=== PATIENT | female | born 1985 | race African-American/Black ===

== ENCOUNTER 2016-07-26 20:35 | Emergency (ER) | payer BC, MEDICAID, OTHER ==
[2016-07-27 02:01] VITALS: BP 134/83
[2016-07-27] MEDS ORDERED: HYDROCODONE/ACETAMINOPHEN 5-325 MG 6 TAB/DSPK PO PRN (02:07)
[2016-07-27] MEDS ORDERED: IBUPROFEN 600 MG TABLET PO ONE (02:07)
--- NOTE | 2016-07-27 02:07 | ER Document Report ---
ED Neck/Back Problem - General Chief Complaint: Back Pain Stated Complaint: FALL/BACK PAIN Time seen by provider: 02:06 Mode of Arrival: Ambulatory Information source: Patient TRAVEL OUTSIDE OF THE [place] IN LAST 30 DAYS: No - HPI Patient complains to provider of: Pain, Injury, Lower back Onset: Yesterday Where: Home Onset: Sudden Timing: Constant Quality of pain: Achy Severity: Moderate Pain Level: 3 Context: Fall/near-fall Recent injury: Yes Associated symptoms: Lower back pain Exacerbated by: Movement of trunk Similar symptoms previously: No Recently seen / treated by doctor: No Notes: 31-year-old female presents to emergency room complaining of buttock and right hip pain stemming from a slip and fall that she sustained yesterday, states she did not immediately have pain and therefore did not seek medical treatment, but throughout the day today she her achy pain to these areas has increased, although she has been able to ambulate and did in fact drive herself to the emergency room to be seen, no head injury or loss of consciousness, no urinary symptoms, no nausea, vomiting or diarrhea - Related Data Allergies/Adverse Reactions: No Known Allergies Allergy (Unverified 07/26/16 20:56) Past Medical History - General Information source: Patient - Social History Smoking Status: Unknown if Ever Smoked Family History: Reviewed & Not Pertinent Patient has suicidal ideation: No Patient has homicidal ideation: No Renal/ Medical History: Denies: Hx Peritoneal Dialysis Review of Systems - Review of Systems Constitutional: No symptoms reported EENT: No symptoms reported Cardiovascular: No symptoms reported Respiratory: No symptoms reported Gastrointestinal: No symptoms reported Genitourinary: No symptoms reported Female Genitourinary: No symptoms reported Musculoskeletal: See HPI Skin: No symptoms reported Hematologic/Lymphatic: No symptoms reported Neurological/Psychological: No symptoms reported -: Yes All other systems reviewed and negative Physical Exam - Vital signs Vitals: Temp Pulse Resp BP Pulse Ox 98.3 F 83 18 111/82 98 07/26/16 20:52 07/26/16 20:52 07/26/16 20:52 07/26/16 20:52 07/26/16 20:52 Interpretation: Normal - Notes Notes: - General General appearance: Appears well, Alert In distress: None - HEENT Head: Normocephalic, Atraumatic Eyes: Normal Conjunctiva: Normal Extraocular movements intact: Yes Eyelashes: Normal Pupils: PERRL - Respiratory Respiratory status: No respiratory distress - Cardiovascular Rhythm: Regular - Abdominal Inspection: Normal - Back Back: Tender to palpate over lower lumbar and sacral region - Extremities General upper extremity: Normal inspection General lower extremity: Tender to palpate over right hip laterally - Neurological Neuro grossly intact: Yes Orientation: AAOx4 Belcher Coma Scale Eye Opening: Spontaneous Belcher Coma Scale Verbal: Oriented Belcher Coma Scale Motor: Obeys Commands Belcher Coma Scale Total: 15 - Psychological Associated symptoms: Normal affect, Normal mood - Skin Skin Temperature: Warm Skin Moisture: Dry Skin Color: Normal Course - Re-evaluation Re-evalutation: 07/27/16 03:37 Imaging findings discussed with patient at bedside which are unremarkable, findings are consistent with a contusion, she was provided with pain medication and information for follow-up, advised to return if symptoms worsen, patient acknowledges understanding and agreement with this plan - Vital Signs Vital signs: Temp Pulse Resp BP Pulse Ox 97.6 F 83 16 134/83 H 99 07/27/16 01:55 07/27/16 01:55 07/27/16 01:55 07/27/16 01:55 07/27/16 01:55 - Diagnostic Test Radiology reviewed: Image reviewed, Reports reviewed Discharge - Discharge Clinical Impression: Injury of coccyx Qualifiers: Encounter type: initial encounter Qualified Code(s): S39.92XA - Unspecified injury of lower back, initial encounter Contusion of right hip Qualifiers: Encounter type: initial encounter Qualified Code(s): S70.01XA - Contusion of right hip, initial encounter Condition: Stable Disposition: HOME, SELF-CARE Instructions: Ice Packs ([facility]), Low Back Pain ([facility]), Oral Narcotic Medication ( [facility]), Coccyx Injury ([facility]), Contusion ([facility]) Additional Instructions: Follow up with your primary care provider in one to 2 days. Return to the emergency room immediately if symptoms worsen or any additional concerns. Prescriptions: Hydrocodone/Acetaminophen [Hydrocodon-Acetaminophen 5-325] 1 each PO Q6 #20 tablet
== END 2016-07-27 02:23 | disposition home or self-care (01) ==
LOC: ER 20:35
DX: S70.01XA Contusion of right hip, initial encounter (principal); S39.92XA Unspecified injury of lower back, initial encounter; M25.551 Pain in right hip; W10.9XXA Fall (on) (from) unspecified stairs and steps, initial encounter; Y92.009 Unspecified place in unspecified non-institutional (private) residence as the place of occurrence of the external cause
CPT/HCPCS: 72110; 99283

== ENCOUNTER 2016-09-25 09:13 | Emergency (ER) | payer SELFPAY ==
[2016-09-25] MEDS ORDERED: KETOROLAC TROMETHAMINE 60 MG/2 ML SDV IM ONE (09:30)
--- NOTE | 2016-09-25 09:33 | ER Document Report ---
HPI - HPI Patient complains to provider of: SORE THROAT Pain Level: 5 Context: PT is a 31 yo female w/ hx/o MS c/o sore throat, headache, body aches x 1 day. pt also c/o c/o lack of coordination which is sometimes a symptom of a MS flare. Associated Symptoms: Body/muscle aches, Fever, Headache, Sore throat, Weakness. denies: Nausea, Vomiting, Shortness of breath Exacerbated by: Denies Relieved by: Denies Similar symptoms previously: Yes Recently seen / treated by doctor: No - new to area, no established with primary care - DERM Skin Color: Normal Past Medical History - General Information source: Patient - Social History Smoking Status: Former Smoker Frequency of alcohol use: None Drug Abuse: None Lives with: Family Family History: Reviewed & Not Pertinent Patient has suicidal ideation: No Patient has homicidal ideation: No - Medical History Medical History: Other - MS Renal/ Medical History: Denies: Hx Peritoneal Dialysis Vertical Provider Document - CONSTITUTIONAL Agree With Documented VS: Yes - hypertensive Exam Limitations: No Limitations General Appearance: WD/WN, Obese - INFECTION CONTROL TRAVEL OUTSIDE OF THE [place] IN LAST 30 DAYS: No - HEENT HEENT: Atraumatic, PERRLA, Pharyngeal Tenderness, Pharyngeal Erythema - NECK Neck: Normal Inspection. negative: Lymphadenopathy-Left, Lymphadenopathy-Right - RESPIRATORY Respiratory: Breath Sounds Normal, No Respiratory Distress O2 Sat by Pulse Oximetry: 98 - CARDIOVASCULAR Cardiovascular: Regular Rate, Regular Rhythm - GI/ABDOMEN Gastrointestinal: Abdomen Soft, Abdomen Non-Tender - MUSCULOSKELETAL/EXTREMETIES Musculoskeletal/Extremeties: MAEW, FROM - NEURO Level of Consciousness: Awake, Alert - DERM Integumentary: Warm, Dry Course - Vital Signs Vital signs: Temp Pulse Resp BP Pulse Ox 99.3 F 96 20 142/91 H 98 09/25/16 09:18 09/25/16 09:18 09/25/16 09:18 09/25/16 09:18 09/25/16 09:18 Discharge - Discharge Clinical Impression: Strep throat Condition: Stable Disposition: HOME, SELF-CARE Instructions: Strep Throat ([facility]), Penicillin V K ([facility]) Additional Instructions: You have strep throat take meds as prescribed, finish prescription lozenges, salt water gargles new tooth brush in 2 days your blood pressure is elevated today please keep blood pressure diary and establish with primary care if BP remains high Prescriptions: Penicillin V Potassium [Penicillin Vk 500 mg Tablet] 500 mg PO BID #20 tablet Forms: Elevated Blood Pressure
[2016-09-25] MEDS ORDERED: HYDROCODONE/ACETAMINOPHEN 5-325 MG TABLET PO ONE (10:30)
[2016-09-25 10:50] VITALS: BP 111/65
== END 2016-09-25 10:52 | disposition home or self-care (01) ==
LOC: ER 09:13
DX: J02.0 Streptococcal pharyngitis (principal); R51 Headache; R50.9 Fever, unspecified; R53.1 Weakness; G35 Multiple sclerosis; I10 Essential (primary) hypertension; Z87.891 Personal history of nicotine dependence
CPT/HCPCS: 99283; 96372; 87880; J1885

== ENCOUNTER 2016-10-11 02:35 | Emergency (ER) | payer OTHER ==
--- NOTE | 2016-10-11 03:35 | RADIOLOGY REPORT (SQ) ---
EXAM DESCRIPTION: HAND RIGHT 3 VIEWS COMPLETED DATE/TIME: 10/11/2016 3:09 am REASON FOR STUDY: injury COMPARISON: None. EXAM PARAMETERS: NUMBER OF VIEWS: Three views. TECHNIQUE: AP, lateral and oblique radiographic images acquired of the right hand. LIMITATIONS: None. FINDINGS: MINERALIZATION: Normal. BONES: No acute fracture or dislocation. No worrisome bone lesions. JOINTS: No effusions. SOFT TISSUES: No soft tissue swelling. No foreign body. OTHER: No other significant finding. IMPRESSION: NEGATIVE STUDY OF THE RIGHT HAND. NO RADIOGRAPHIC EVIDENCE OF ACUTE INJURY. TECHNICAL DOCUMENTATION: JOB ID: [id number] [employer]- All Rights Reserved
--- NOTE | 2016-10-11 04:14 | ER Document Report ---
ED General - General Chief Complaint: Hand Pain Stated Complaint: HAND PAIN Time Seen by Provider: 10/11/16 03:47 Notes: Patient is a pleasant 31-year-old female who presents with complaint of pain in the right thumb. Patient is a heavy truck driver. She said when she went to push on the air break her thumb hyperextended backwards and she felt a crack. She had bruising and swelling over the hyperthenar eminence of her symptoms. No other injuries or complaints. No pain in the wrist. TRAVEL OUTSIDE OF THE [place] IN LAST 30 DAYS: No - Related Data Allergies/Adverse Reactions: IV dye Allergy (Uncoded 10/11/16 03:42) Home Medications: Current Home Medications Gabapentin [Neurontin 300 mg Capsule] 1 cap PO Q8 10/11/16 [History] Interferon Beta-1B [Betaseron Inj 0.3 mg Kit] 1 kit SQ ASDIR PRN 10/11/16 [ History] Past Medical History - Social History Smoking Status: Never Smoker Cigarette use (# per day): No Chew tobacco use (# tins/day): No Frequency of alcohol use: None Drug Abuse: None Family History: Reviewed & Not Pertinent Patient has suicidal ideation: No Patient has homicidal ideation: No Renal/ Medical History: Denies: Hx Peritoneal Dialysis Past Surgical History: Reports: Hx Section - x1 - Immunizations Hx Diphtheria, Pertussis, Tetanus Vaccination: - unknown Review of Systems - Review of Systems Notes: My Normal Review Basic REVIEW OF SYSTEMS: CONSTITUTIONAL : Denies fever, chills, or sweats. Denies recent illness. MUSCULOSKELETAL: Hand and thumb pain. SKIN: Denies rash or skin lesions. NEUROLOGICAL: Denies sensory or motor loss. ALL OTHER SYSTEMS REVIEWED AND NEGATIVE. Physical Exam - Vital signs Vitals: Temp Pulse Resp BP Pulse Ox 97.3 F 71 18 143/91 H 98 10/11/16 02:43 10/11/16 02:43 10/11/16 02:43 10/11/16 02:43 10/11/16 02:43 - Notes Notes: General Appearance: Well nourished, alert, cooperative, no acute distress, no obvious discomfort. Vitals: reviewed, See vital signs table. Extremities: strength 5/5 in all extremities, good pulses in all extremities, patient does have swelling of the right hyperthenar eminence. There is some bruising from the form base of thumb as well. Patient does have pain to palpation over this area. Remainder of the hand is nontender. No pain to palpation of the wrist., no edema. Skin: warm, dry, appropriate color, no rash Neuro: speech clear, oriented x 3, normal affect, responds appropriately to questions. Course - Re-evaluation Re-evalutation: 10/11/16 04:45 Patient injury and physical exam findings are consistent with a gamekeeper's thumb type injury to the ligament structure at the base of the right thumb. Will place her thumb spica splint. I will have her follow-up with orthopedics. I encouraged her return to ER if she has increasing pain or swelling or feels unwell. I did explain to her that she can use an Sergio wrap on the splint if she has any numbness or tingling to the hand or feels that is too tight. Patient agrees with plan and will be discharged home. Dictation of this chart was performed using voice recognition software; therefore, there may be some unintended grammatical errors. - Vital Signs Vital signs: Temp Pulse Resp BP Pulse Ox 97.7 F 72 18 125/76 98 10/11/16 04:34 10/11/16 04:34 10/11/16 04:34 10/11/16 04:34 10/11/16 04:34 Procedures - Immobilization Right Hand Pre-Proc Neuro Vasc Exam: Normal Immobilizer type: Thumb spica Performed by: PCT Post-Proc Neuro Vasc Exam: Normal Discharge - Discharge Clinical Impression: Strain of thumb, right Condition: Good Disposition: HOME, SELF-CARE Additional Instructions: You have what appears to be a injury to the ligament in your thumb called a Game Keeper's thumb.Please return to the ER if you have worsening pain or numbness in your fingers that is not improved with loosening the sergio wrap on the splint. Please follow up with the orthopedist, Dr. Goldstein, to have your hand reevaluated. Please wear the splint to protect your thumb so the ligament involved can heal appropriately. Referrals: CAMACHO GOLDSTEIN, [ACTIVE STAFF] - Follow up in 3-5 days
[2016-10-11 04:39] VITALS: BP 125/76
== END 2016-10-11 04:43 | disposition home or self-care (01) ==
LOC: ER 02:35
PROC: 2W3CX1Z Immobilization of Right Lower Arm using Splint (ICD-10-PCS; principal; 2016-10-11)
DX: S63.641A Sprain of metacarpophalangeal joint of right thumb, initial encounter (principal); X58.XXXA Exposure to other specified factors, initial encounter; Y99.0 Civilian activity done for income or pay
CPT/HCPCS: 99283

== ENCOUNTER 2017-01-23 21:26 | Emergency (ER) | payer OTHER ==
[2017-01-24] MEDS ORDERED: ONDANSETRON HCL INJ/PF 4 MG/2 ML SDV IV ONE (01:07)
[2017-01-24] MEDS ORDERED: NORMAL SALINE 1000 ML 1,000 ML IV ONE (01:07)
[2017-01-24 02:00] LABS: ABSOLUTE EOSINOPHILS # (AUTO) 0.2 10^3/uL (0.0-0.6); ABSOLUTE LYMPHOCYTES (AUTO) 1.7 10^3/uL (0.5-4.7); ABSOLUTE MONOCYTES (AUTO) 0.7 10^3/uL (0.1-1.4); BASOPHILS % (AUTO) 0.4 % (0-2); HEMATOCRIT 35.2 % (36.0-47.0); HEMOGLOBIN 11.5 g/dL (12.0-15.5); HGB HCT DIFFERENCE -0.7; LYMPHOCYTES % (AUTO) 36.7 % (13-45); MEAN CORPUSCULAR HEMOGLOBIN 25.3 pg (27.0-33.4); MEAN CORPUSCULAR HGB CONC 32.6 g/dL (32.0-36.0); MEAN CORPUSCULAR VOLUME 78 fl (80-97); MONOCYTES % (AUTO) 15.2 % (3-13); RED BLOOD COUNT 4.54 10^6/uL (3.72-5.28); RED CELL DISTRIBUTION WIDTH 15.1 % (11.5-14.0); SEGMENTED NEUTROPHILS % (AUTO) 43.7 % (42-78); WHITE BLOOD COUNT 4.6 10^3/uL (4.0-10.5)
[2017-01-24 02:06] LABS: ALANINE AMINOTRANSFERASE 39 U/L (9-52); ALBUMIN 4.1 g/dL (3.5-5.0); ALKALINE PHOSPHATASE 71 U/L (38-126); ANION GAP 13 (5-19); ASPARTATE AMINO TRANSFERASE 29 U/L (14-36); BILIRUBIN,DIRECT 0.2 mg/dL (0.0-0.4); BILIRUBIN,TOTAL 0.3 mg/dL (0.2-1.3); BLOOD UREA NITROGEN 17 mg/dL (7-20); CALCIUM 9.7 mg/dL (8.4-10.2); CARBON DIOXIDE 26 mmol/L (22-30); CHLORIDE 108 mmol/L (98-107); CREATININE RESULT 0.87 mg/dL (0.52-1.25); GLUCOSE 91 mg/dL (75-110); LIPASE 47.3 U/L (23-300); TOTAL PROTEIN 7.7 g/dL (6.3-8.2)
--- NOTE | 2017-01-24 02:08 | ER Document Report ---
ED General - General Chief Complaint: Diarrhea Stated Complaint: HEADACHE,DIZZINESS Time Seen by Provider: 01/24/17 01:06 Notes: Patient is a 31-year-old female without past medical history who presents with 4 days of present diarrhea and 1 day of intermittent abdominal cramping. Does describe cramping as an intermittent, mild, aching pain. It has been unchanged since onset. She has been trying loperamide and Pepto-Bismol without improvement of her symptoms. Nothing worsens her symptoms. She denies any associated vomiting and does note that she has been able to tolerate oral intake without difficulty. No known sick contacts. She denies a recent history of similar symptoms. She has not seen her primary care doctor regarding today's concerns. She denies any fever or constitutional symptoms. TRAVEL OUTSIDE OF THE [place] IN LAST 30 DAYS: No - Related Data Allergies/Adverse Reactions: IV dye Allergy (Uncoded 10/11/16 03:42) Past Medical History - General Information source: Patient - Social History Smoking Status: Never Smoker Frequency of alcohol use: None Drug Abuse: None Lives with: Family Family History: Reviewed & Not Pertinent Renal/ Medical History: Denies: Hx Peritoneal Dialysis Past Surgical History: Reports: Hx Section - x1 - Immunizations Hx Diphtheria, Pertussis, Tetanus Vaccination: - unknown Review of Systems - Review of Systems Notes: Constitutional: Negative for fever. HENT: Negative for sore throat. Eyes: Negative for visual changes. Cardiovascular: Negative for chest pain. Respiratory: Negative for shortness of breath. Gastrointestinal: Positive for abdominal cramping and diarrhea Genitourinary: Negative for dysuria. Musculoskeletal: Negative for back pain. Skin: Negative for rash. Neurological: Negative for headaches, weakness or numbness. 10 point ROS negative except as marked above and in HPI. Physical Exam - Vital signs Vitals: Temp Pulse Resp BP Pulse Ox 98.5 F 82 18 141/95 H 98 01/23/17 22:50 01/23/17 22:50 01/23/17 22:50 01/23/17 22:50 01/23/17 22:50 Interpretation: Normal Notes: PHYSICAL EXAMINATION: GENERAL: Well-appearing, well-nourished and in no acute distress. HEAD: Atraumatic, normocephalic. EYES: Pupils equal round and reactive to light, extraocular movements intact, sclera anicteric, conjunctiva are normal. ENT: nares patent, oropharynx clear without exudates. Moist mucous membranes. NECK: Normal range of motion, supple without lymphadenopathy LUNGS: Breath sounds clear to auscultation bilaterally and equal. No wheezes rales or rhonchi. HEART: Regular rate and rhythm without murmurs ABDOMEN: Soft, nontender, normoactive bowel sounds. No guarding, no rebound. No masses appreciated. EXTREMITIES: Normal range of motion, no pitting or edema. No cyanosis. NEUROLOGICAL: No focal neurological deficits. Moves all extremities spontaneously and on command. PSYCH: Normal mood, normal affect. SKIN: Warm, Dry, normal turgor, no rashes or lesions noted. Course - Re-evaluation Re-evalutation: 01/24/17 02:07 Presentation of an overall well-appearing patient in no acute distress with complaints of persistent abdominal cramping and diarrhea. This is consistent with likely viral etiology although a bacterial colitis cannot be definitively excluded. Patient has no abdominal tenderness on exam and specifically no tenderness in the RLQ, LLQ, RUQ. Overall well hydrated on exam. Able to tolerate oral intake here in the emergency department. Low clinical suspicion for any acute life-threatening etiology based on exam and history including acute cholecystitis, SBO, appendicitis, nephrolithiasis, or pylonephritis. CMP without evidence of acute hepatitis or significant dehydration. Will send with a [id number] prescription of ciprofloxacin if she does not have resolution of her diarrhea with the next 48 hours. At this time will discharge with return precautions and follow-up recommendations. Verbal discharge instructions given a the bedside and opportunity for questions given. Medication warnings reviewed. Patient is in agreement with this plan and has verbalized understanding of return precautions and the need for primary care follow-up in the next 24-72 hours. - Vital Signs Vital signs: Temp Pulse Resp BP Pulse Ox 98.5 F 82 18 141/95 H 98 01/23/17 22:50 01/23/17 22:50 01/23/17 22:50 01/23/17 22:50 01/23/17 22:50 - Laboratory Result Diagrams: 01/24/17 01:40 01/24/17 01:40 Laboratory results interpreted by me: 01/24/17 01/24/17 01:40 01:40 Hgb 11.5 L Hct 35.2 L MCV 78 L MCH 25.3 L RDW 15.1 H Monocytes % 15.2 H Sodium 147.0 H Chloride 108 H Discharge - Discharge Clinical Impression: Dehydration, Lightheadedness Diarrhea Qualifiers: Diarrhea type: presumed infectious Qualified Code(s): A09 - Infectious gastroenteritis and colitis, unspecified Condition: Good Disposition: HOME, SELF-CARE Additional Instructions: Your symptoms are likely due to a viral illness and should resolve in the next several days. However, given the persistence of your diarrhea you have been given a prescription for ciprofloxacin that you can begin taking if your diarrhea does not resolve within the next 48 hours. You can take over-the- counter loperamide also known as Imodium as needed for diarrhea per box instructions. Continue to stay hydrated with plenty of solution such as Gatorade or Pedialyte. You are being prescribed Zofran to take as needed for nausea and vomiting. Please return if you develop severe abdominal pain, pass out, become unable to tolerate any oral fluids for 12 more hours, or any other symptoms that are concerning to you. Prescriptions: Ciprofloxacin HCl [Cipro 500 mg Tablet] 500 mg PO BID #6 tablet
[2017-01-24 03:11] VITALS: BP 128/86
== END 2017-01-24 03:00 | disposition home or self-care (01) ==
LOC: ER 21:26
DX: E86.0 Dehydration (principal); R42 Dizziness and giddiness; A09 Infectious gastroenteritis and colitis, unspecified; R10.9 Unspecified abdominal pain; Z91.041 Radiographic dye allergy status
CPT/HCPCS: 36415; 80053; 83690; 84703; 85025; 99284

== ENCOUNTER 2017-05-08 20:56 | Emergency (ER) | payer OTHER ==
[2017-05-08] MEDS ORDERED: ONDANSETRON 4 MG TAB.RAPDIS PO ONE (23:59)
--- NOTE | 2017-05-09 00:01 | ER Document Report ---
ED Medical Screen (RME) - General Chief Complaint: Vomiting Stated Complaint: HEADACHE,ABDOMINAL PAIN Time Seen by Provider: 05/08/17 23:59 Mode of Arrival: Ambulatory Information source: Patient Notes: 32-year-old female presents to ED for complaint of nausea vomiting headache stomachache since this morning. She states her last menstrual period was Monday. She has a past medical history of MS. She denies any drinking drugs or smoking. Lungs are clear abdomen is soft she does have bowel sounds. She states she has had vomiting 10 the day had 5 stools today is that everyone in her family has had some kind of sickness but none of them had the same symptoms that she does. I have greeted and performed a rapid initial assessment of this patient. A comprehensive ED assessment and evaluation of the patient, analysis of test results and completion of medical decision making process will be conducted by an additional ED providers. TRAVEL OUTSIDE OF THE [place] IN LAST 30 DAYS: No - Related Data Allergies/Adverse Reactions: IV dye Allergy (Uncoded 10/11/16 03:42) Past Medical History Renal/ Medical History: Denies: Hx Peritoneal Dialysis Past Surgical History: Reports: Hx Section - x1 - Immunizations Hx Diphtheria, Pertussis, Tetanus Vaccination: - unknown
[2017-05-09 00:37] LABS: ABSOLUTE EOSINOPHILS # (AUTO) 0.1 10^3/uL (0.0-0.6); ABSOLUTE LYMPHOCYTES (AUTO) 0.7 10^3/uL (0.5-4.7); ABSOLUTE MONOCYTES (AUTO) 0.4 10^3/uL (0.1-1.4); ABSOLUTE NEUT (AUTO) 3.6 10^3/uL (1.7-8.2); BASOPHILS % (AUTO) 0.4 % (0-2); EOSINOPHILS % (AUTO) 1.4 % (0-6); HEMATOCRIT 37.3 % (36.0-47.0); HEMOGLOBIN 11.9 g/dL (12.0-15.5); LYMPHOCYTES % (AUTO) 15.2 % (13-45); MEAN CORPUSCULAR HEMOGLOBIN 24.5 pg (27.0-33.4); MEAN CORPUSCULAR VOLUME 77 fl (80-97); MONOCYTES % (AUTO) 9.1 % (3-13); PLATELET COUNT 329 10^3/uL (150-450); RED BLOOD COUNT 4.86 10^6/uL (3.72-5.28); RED CELL DISTRIBUTION WIDTH 18.4 % (11.5-14.0); SEGMENTED NEUTROPHILS % (AUTO) 73.9 % (42-78); TOTAL CELLS COUNTED % (AUTO) 100 %; WHITE BLOOD COUNT 4.8 10^3/uL (4.0-10.5)
[2017-05-09 00:43] LABS: APPEARANCE,URINE SLIGHTLY-CLOUDY; BILIRUBIN,URINE NEGATIVE (NEGATIVE); COLOR,URINE YELLOW; GLUCOSE, URINE NEGATIVE (NEGATIVE); KETONES,URINE NEGATIVE (NEGATIVE); LEUKOCYTE ESTERASE,URINE NEGATIVE (NEGATIVE); NITRITE,URINE NEGATIVE (NEGATIVE); PROTEIN,URINE NEGATIVE (NEGATIVE); URINE SPECIFIC GRAVITY 1.036; UROBILINOGEN,URINE NEGATIVE mg/dL (<2.0)
[2017-05-09 01:01] LABS: ALANINE AMINOTRANSFERASE 30 U/L (9-52); ALBUMIN 4.3 g/dL (3.5-5.0); ALKALINE PHOSPHATASE 60 U/L (38-126); ANION GAP 10 (5-19); ASPARTATE AMINO TRANSFERASE 18 U/L (14-36); BILIRUBIN,DIRECT 0.1 mg/dL (0.0-0.4); BILIRUBIN,TOTAL 0.3 mg/dL (0.2-1.3); BLOOD UREA NITROGEN 12 mg/dL (7-20); CALCIUM 9.6 mg/dL (8.4-10.2); CARBON DIOXIDE 25 mmol/L (22-30); CHLORIDE 106 mmol/L (98-107); GLUCOSE 106 mg/dL (75-110); POTASSIUM 4.3 mmol/L (3.6-5.0); SODIUM 141.4 mmol/L (137-145); TOTAL PROTEIN 7.4 g/dL (6.3-8.2)
[2017-05-09] MEDS ORDERED: DIPHENHYDRAMINE HCL 50 MG CAPSULE PO ONE (02:30)
[2017-05-09] MEDS ORDERED: PROMETHAZINE HCL 25 MG TABLET PO ONE (02:30)
--- NOTE | 2017-05-09 02:35 | ER Document Report ---
ED General - General Chief Complaint: Vomiting Stated Complaint: HEADACHE,ABDOMINAL PAIN Time Seen by Provider: 05/08/17 23:59 Mode of Arrival: Ambulatory Information source: Patient Notes: 32-year-old female presents with complaints of nausea vomiting diarrhea of 1 day duration. Patient notes she vomited 10 times had 6 episodes diarrhea no blood. Patient denies any significant abdominal pain admits mild headache. Patient notes multiple family members have had similar symptoms. TRAVEL OUTSIDE OF THE [place] IN LAST 30 DAYS: No - HPI Onset: This morning Onset/Duration: Sudden Quality of pain: Cramping Severity: Mild Pain Level: 1 Associated symptoms: Diarrhea, Nausea, Vomiting Exacerbated by: Denies Relieved by: Denies Similar symptoms previously: No Recently seen / treated by doctor: No - Related Data Allergies/Adverse Reactions: IV dye Allergy (Uncoded 10/11/16 03:42) Past Medical History - General Information source: Patient - Social History Smoking Status: Never Smoker Cigarette use (# per day): No Chew tobacco use (# tins/day): No Smoking Education Provided: No Family History: Reviewed & Not Pertinent Renal/ Medical History: Denies: Hx Peritoneal Dialysis Past Surgical History: Reports: Hx Section - x1 - Immunizations Hx Diphtheria, Pertussis, Tetanus Vaccination: - unknown Review of Systems - Review of Systems Notes: REVIEW OF SYSTEMS: CONSTITUTIONAL : Denies fever, chills, or sweats. Denies recent illness. EENT: Denies eye, ear, throat, or mouth pain or symptoms. Denies nasal or sinus congestion or discharge. Denies throat, tongue, or mouth swelling or difficulty swallowing. CARDIOVASCULAR: Denies chest pain. Denies palpitations or racing or irregular heart beat. Denies ankle edema. RESPIRATORY: Denies cough, cold, or chest congestion. Denies shortness of breath, difficulty breathing, or wheezing. GASTROINTESTINAL: admit sto nausea vomiting diarrhea GENITOURINARY: Denies difficulty urinating, painful urination, burning, frequency, blood in urine, or discharge. FEMALE GENITOURINARY: Denies vaginal bleeding, heavy or abnormal periods, irregular periods. Denies vaginal discharge or odor. MUSCULOSKELETAL: Denies back or neck pain or stiffness. Denies joint pain or swelling. SKIN: Denies rash, lesions or sores. HEMATOLOGIC : Denies easy bruising or bleeding. LYMPHATIC: Denies swollen, enlarged glands. NEUROLOGICAL: Denies confusion or altered mental status. Denies passing out or loss of consciousness. Denies dizziness or lightheadedness. Denies headache. Denies weakness or paralysis or loss of use of either side. Denies problems with gait or speech. Denies sensory loss, numbness, or tingling. Denies seizures. PSYCHIATRIC: Denies anxiety or stress. Denies depression, suicidal ideation, or homicidal ideation. ALL OTHER SYSTEMS REVIEWED AND NEGATIVE. PHYSICAL EXAMINATION: GENERAL: Well-appearing, well-nourished and in no acute distress. HEAD: Atraumatic, normocephalic. EYES: Pupils equal round and reactive to light, extraocular movements intact, conjunctiva are normal. ENT: Nares patent, oropharynx clear without exudates. Moist mucous membranes. NECK: Normal range of motion, supple without lymphadenopathy LUNGS: Breath sounds clear to auscultation bilaterally and equal. No wheezes rales or rhonchi. HEART: Regular rate and rhythm without murmurs ABDOMEN: Soft, nontender, nondistended abdomen. No guarding, no rebound. No masses appreciated. Female : deferred Musculoskeletal: Normal range of motion, no pitting or edema. No cyanosis. NEUROLOGICAL: Cranial nerves grossly intact. Normal speech, normal gait. Normal sensory, motor exams PSYCH: Normal mood, normal affect. SKIN: Warm, Dry, normal turgor, no rashes or lesions noted. Dictation was performed using [employer] voice recognition software Physical Exam - Vital signs Vitals: Temp Pulse Resp BP Pulse Ox 99.3 F 79 24 H 138/86 H 98 05/08/17 22:30 05/08/17 22:30 05/08/17 22:30 05/08/17 22:30 05/08/17 22:30 Course - Re-evaluation Re-evalutation: 05/09/17 02:34 patient is extremely well appearing , resting comfortably, pt is in no distress. pt will be given phenergan and follow up for home labs noted no significant abnormality After performing a Medical Screening Examination, I estimate there is LOW risk for ACUTE APPENDICITIS, BOWEL OBSTRUCTION, ACUTE CHOLECYSTITIS, PERFORATED DIVERTICULITIS, INCARCERATED HERNIA, PANCREATITIS, PELVIC INFLAMMATORY DISEASE, PERFORATED ULCER, ECTOPIC , or TUBO-OVARIAN ABSCESS, thus I consider the discharge disposition reasonable. Also, there is no evidence or peritonitis , sepsis, or toxicity. I have reevaluated this patient multiple times and no significant life threatening changes are noted. The patient and I have discussed the diagnosis and risks, and we agree with discharging home with close follow-up with the understanding that symptoms and presentations can change. We also discussed returning to the Emergency Department immediately if new or worsening symptoms occur. We have discussed the symptoms which are most concerning (e.g., bloody stool, fever, changing or worsening pain, vomiting) that necessitate immediate return. - Vital Signs Vital signs: Temp Pulse Resp BP Pulse Ox 98.9 F 74 20 124/74 99 05/09/17 01:06 05/09/17 01:06 05/09/17 01:06 05/09/17 01:06 05/09/17 01:06 - Laboratory Result Diagrams: 05/09/17 00:10 05/09/17 00:10 Laboratory results interpreted by me: 05/09/17 05/09/17 00:10 00:15 Hgb 11.9 L MCV 77 L MCH 24.5 L RDW 18.4 H Urine Ascorbic Acid 20 H Discharge - Discharge Clinical Impression: Nausea vomiting and diarrhea Condition: Stable Disposition: HOME, SELF-CARE Instructions: Vomiting ([facility]), Diarrhea, Nonspecific ([facility]) Additional Instructions: Follow up with your physician tomorrow for further care or return to the ED IMMEDIATELY if symptoms worsen or new concerns occur. If you cannot afford to follow up with your primary care physician a list of low cost clinics have been provided at the end of your discharge papers as well. Prescriptions: Promethazine HCl [Phenergan 25 mg Tablet] 1 - 2 tab PO Q6H PRN #15 tablet PRN Reason:
[2017-05-09 03:12] VITALS: BP 140/84
== END 2017-05-09 03:05 | disposition home or self-care (01) ==
LOC: ER 20:56
DX: R11.2 Nausea with vomiting, unspecified (principal); R19.7 Diarrhea, unspecified
CPT/HCPCS: 36415; 80053; 81001; 84702; 85025; 99284

== ENCOUNTER 2018-04-27 20:54 | Emergency (ER) | payer OTHER ==
--- NOTE | 2018-04-27 22:54 | EKG REPORT ---
SEVERITY:- NORMAL ECG - SINUS RHYTHM : Confirmed by: Yudy Barnes MD 27-Apr-2018 22:53:27
[2018-04-28] MEDS ORDERED: BENZONATATE 100 MG CAPSULE PO ONE (01:46)
[2018-04-28] MEDS ORDERED: ALBUTEROL SULFATE HFA (90 MCG/PUFF) 200 PUFF/8.5 GM MDI IH ONE (01:46)
[2018-04-28] MEDS ORDERED: DEXAMETHASONE 4 MG TABLET PO ONE (01:46)
--- NOTE | 2018-04-28 01:48 | ER Document Report ---
ED General - General Chief Complaint: Cough Stated Complaint: CHEST PAIN,DIFFICULTY BREATHING,EYES BURNING Time Seen by Provider: 04/28/18 01:12 Notes: Patient is a 33-year-old female with a past medical history of morbid obesity who presents with 2 days of sinus pressure, eye burning, cough and chest discomfort with coughing. Patient describes her symptoms as starting gradually and gotten progressively worse since onset. Has not trying to improve her symptoms. Nothing worsens her symptoms. Does describe the chest discomfort as being diffuse across her ribs, chest and upper back and present only with coughing. Describes it as a soreness and achiness. She denies distinct shortness of breath. No fever. No pleuritic pain. No history of DVT or pulmonary embolus. Multiple sick contacts. Has not seen her general physician regarding today's concerns. TRAVEL OUTSIDE OF THE [place] IN LAST 30 DAYS: No - Related Data Allergies/Adverse Reactions: IV dye Allergy (Uncoded 10/11/16 03:42) Past Medical History - General Information source: Patient - Social History Smoking Status: Never Smoker Frequency of alcohol use: None Drug Abuse: None Lives with: Family Family History: Reviewed & Not Pertinent Patient has suicidal ideation: No Patient has homicidal ideation: No Renal/ Medical History: Denies: Hx Peritoneal Dialysis Past Surgical History: Reports: Hx Section - x1 - Immunizations Hx Diphtheria, Pertussis, Tetanus Vaccination: - unknown Review of Systems - Review of Systems Notes: Constitutional: Negative for fever. HENT: Negative for sore throat. Eyes: Positive for bilateral eye burning Cardiovascular: Negative for chest pain. Respiratory: Positive for cough Gastrointestinal: Negative for abdominal pain, vomiting or diarrhea. Genitourinary: Negative for dysuria. Musculoskeletal: Positive for diffuse musculoskeletal chest and upper back pain Skin: Negative for rash. Neurological: Negative for headaches, weakness or numbness. 10 point ROS negative except as marked above and in HPI. Physical Exam - Vital signs Vitals: Temp Pulse Resp BP Pulse Ox 98.3 F 75 24 H 135/83 H 100 04/27/18 21:10 04/27/18 21:10 04/27/18 21:10 04/27/18 21:10 04/27/18 21:10 Interpretation: Normal Notes: PHYSICAL EXAMINATION: GENERAL: Well-appearing, well-nourished and in no acute distress. HEAD: Atraumatic, normocephalic. EYES: Pupils equal round and reactive to light, extraocular movements intact, sclera anicteric, conjunctiva are normal. ENT: nares patent, oropharynx clear without exudates. Moist mucous membranes. NECK: Normal range of motion, supple without lymphadenopathy LUNGS: Breath sounds clear to auscultation bilaterally and equal. No wheezes rales or rhonchi. HEART: Regular rate and rhythm without murmurs ABDOMEN: Soft, morbidly obese abdomen nontender, normoactive bowel sounds. No guarding, no rebound. No masses appreciated. EXTREMITIES: Normal range of motion, no pitting or edema. No cyanosis. NEUROLOGICAL: No focal neurological deficits. Moves all extremities spontaneously and on command. PSYCH: Normal mood, normal affect. SKIN: Warm, Dry, normal turgor, no rashes or lesions noted. Course - Re-evaluation Re-evalutation: 04/28/18 01:47 Patient presents with a clinical history and exam most consistent with an acute viral bronchitis. Patient is overall well in appearance without tachypnea, hypoxemia, tachycardia, or difficulty with ambulation. Breath sounds are clear bilaterally. No fever. Patient does have additional signs of upper respiratory infection including nasal congestion, bilateral eye irritation, sore throat, and sinus pressure. No indication for labs or imaging. Will treat with bronchodilators, single dose of dexamethasone, and Tessalon Perles. At this heather e will discharge with return precautions and follow-up recommendations. Verbal discharge instructions given a the bedside and opportunity for questions given. Medication warnings reviewed. Patient is in agreement with this plan and has verbalized understanding of return precautions and the need for primary care follow-up in the next 24-72 hours. - Vital Signs Vital signs: Temp Pulse Resp BP Pulse Ox 98.1 F 81 20 120/80 100 04/28/18 01:50 04/28/18 01:50 04/28/18 01:50 04/28/18 01:50 04/28/18 01:50 Discharge - Discharge Clinical Impression: Bronchitis, Chest wall pain Condition: Good Disposition: HOME, SELF-CARE Additional Instructions: You were seen for symptoms most consistent with bronchitis. This can take up to 12 weeks to fully resolve. This is generally due to a viral infection. Please follow-up with your primary doctor in the next 2-3 days. Return if you develop worsening cough, vomiting, fever >100.4, pass out, begin coughing blood, or have any other symptoms that are concerning to you. Please use the medications prescribed today as directed.
[2018-04-28 02:06] VITALS: BP 120/80
== END 2018-04-28 02:00 | disposition home or self-care (01) ==
LOC: ER 20:54
DX: J40 Bronchitis, not specified as acute or chronic (principal); R07.89 Other chest pain; E66.01 Morbid (severe) obesity due to excess calories
CPT/HCPCS: 93005; 99283; 93010; J3490

== ENCOUNTER 2018-05-05 18:35 | Emergency (ER) | payer OTHER ==
[2018-05-05 18:45] VITALS: BP 136/81
--- NOTE | 2018-05-05 19:32 | ER Document Report ---
ED General - General Chief Complaint: Ear Pain Stated Complaint: HEADACHE Time Seen by Provider: 05/05/18 19:26 TRAVEL OUTSIDE OF THE [place] IN LAST 30 DAYS: No - HPI Patient complains to provider of: Bilateral ear pain headache Notes: Patient coming in for evaluation of bilateral ear pain headache and some slight dizziness. Patient states ongoing for quite a few number days. Patient denies any recent travel in airplane denies any scuba diving patient denies any fever chills nausea vomiting denies any trauma. Resting healthy upon my evaluation. - Related Data Allergies/Adverse Reactions: IV dye Allergy (Uncoded 10/11/16 03:42) Past Medical History - Social History Smoking Status: Unknown if Ever Smoked Chew tobacco use (# tins/day): No Frequency of alcohol use: None Drug Abuse: None Family History: Reviewed & Not Pertinent Patient has suicidal ideation: No Patient has homicidal ideation: No Renal/ Medical History: Denies: Hx Peritoneal Dialysis Past Surgical History: Reports: Hx Section - x1 - Immunizations Hx Diphtheria, Pertussis, Tetanus Vaccination: - unknown Review of Systems - Review of Systems Constitutional: No symptoms reported EENT: Ear pain - Headache Cardiovascular: No symptoms reported Respiratory: No symptoms reported Gastrointestinal: No symptoms reported Genitourinary: No symptoms reported Female Genitourinary: No symptoms reported Musculoskeletal: No symptoms reported Skin: No symptoms reported Hematologic/Lymphatic: No symptoms reported Neurological/Psychological: No symptoms reported -: Yes All other systems reviewed and negative Physical Exam - Vital signs Vitals: Temp Pulse Resp BP Pulse Ox 99.1 F 83 18 136/81 H 99 05/05/18 18:44 05/05/18 18:44 05/05/18 18:44 05/05/18 18:44 05/05/18 18:44 Interpretation: Normal - General General appearance: Appears well, Alert - HEENT Head: Normocephalic, Atraumatic Eyes: Normal Cornea: Normal Extraocular movements intact: Yes Eyelashes: Normal Pupils: PERRL Ears: Normal External canal: Cerumen impaction - Bilateral Tympanic membrane: Normal Sinus: Normal Nasal: Normal Mouth/Lips: Normal Mucous membranes: Normal Pharynx: Normal Neck: Normal - Respiratory Respiratory status: No respiratory distress Chest status: Nontender Breath sounds: Normal Chest palpation: Normal - Cardiovascular Rhythm: Regular Heart sounds: Normal auscultation Murmur: No - Abdominal Inspection: Normal Distension: No distension Bowel sounds: Normal Tenderness: Nontender Organomegaly: No organomegaly - Back Back: Normal, Nontender - Extremities General upper extremity: Normal inspection, Nontender, Normal color, Normal ROM, Normal temperature General lower extremity: Normal inspection, Nontender, Normal color, Normal ROM, Normal temperature, Normal weight bearing. No: Glenis's sign - Neurological Neuro grossly intact: Yes Cognition: Normal Orientation: AAOx4 [place] Coma Scale Eye Opening: Spontaneous [place] Coma Scale Verbal: Oriented [place] Coma Scale Motor: Obeys Commands [place] Coma Scale Total: 15 Speech: Normal Motor strength normal: LUE, RUE, LLE, RLE Sensory: Normal - Psychological Associated symptoms: Normal affect, Normal mood - Skin Skin Temperature: Warm Skin Moisture: Dry Skin Color: Normal Course - Re-evaluation Re-evalutation: 05/05/18 20:49 Patient coming with bilateral cerumen impaction possibly causing some of her symptoms we will treat patient with Debrox recommend Tylenol Motrin for pain Fioricet for significant pain patient was discharged home the patient presents with headache without signs of SPRING FORGER bleed, stroke, infection, or other serious etiology. The patient is neurologically intact. Given the extremely low risk of these diagnoses further testing and evaluation for these possibilities does not appear to be indicated at this time. The patient has been instructed to return if the symptoms worsen or change in any way.. - Vital Signs Vital signs: Temp Pulse Resp BP Pulse Ox 99.1 F 83 18 136/81 H 99 05/05/18 18:44 05/05/18 18:44 05/05/18 18:44 05/05/18 18:44 05/05/18 18:44 Discharge - Discharge Clinical Impression: Bilateral impacted cerumen, Dizziness Headache Qualifiers: Headache type: unspecified Headache chronicity pattern: unspecified pattern Intractability: not intractable Qualified Code(s): R51 - Headache Condition: Good Instructions: Cerumen Impaction ([facility]), Headache ([facility]), Oral Narcotic Medication ([facility]) Additional Instructions: Your physical examination today shows bilateral cerumen impactions are bilateral impactions or earwax in the ears please use the Debrox drops as prescribed. He may take Tylenol and Motrin together as prescribed for your headache may also take the Fioricet please be aware that Fioricet may make you sleepy return to the ER symptoms worsen. Prescriptions: Ibuprofen [Motrin 600 mg Tablet] 600 mg PO Q8HP PRN #21 tablet PRN Reason: Butalb/Acetaminophen/Caffeine [Fioricet 50-300-40 mg Capsule] 1 cap PO Q4 PRN #30 cap PRN Reason: Carbamide Peroxide [Debrox 6.5 % Otic Drops 15 ml] 5 drop OS BID #1 bottle Forms: Return to Work
== END 2018-05-05 19:35 | disposition home or self-care (01) ==
LOC: ER 18:35
DX: H61.23 Impacted cerumen, bilateral (principal); H92.03 Otalgia, bilateral; R51 Headache; R42 Dizziness and giddiness; Z91.041 Radiographic dye allergy status
CPT/HCPCS: 99282

== ENCOUNTER 2018-08-29 18:35 | Emergency (ER) | payer OTHER ==
--- NOTE | 2018-08-29 19:56 | ER Document Report ---
ED Medical Screen (RME) - General Chief Complaint: Abdominal Cramping Stated Complaint: BODY PAIN Time Seen by Provider: 08/29/18 19:54 Mode of Arrival: Ambulatory Information source: Patient Notes: 33-year-old female presents to ED for complaint of abdominal cramping muscle cramping nauseated and seeing spots with numbness in her arm since about 2:00. 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 She states she has had these symptoms since about 2:00. She states she has been drinking fluids Gatorade all day. Patient is alert oriented respirations regular and unlabored speaking in full sentences walks with a even steady gait. She did drive herself to the emergency room. I have greeted and performed a rapid initial assessment of this patient. A comprehensive ED assessment and evaluation of the patient, analysis of test results and completion of medical decision making process will be conducted by an additional ED providers. Dictation of this chart was performed using voice recognition software; therefore, there may be some unintended grammatical errors. TRAVEL OUTSIDE OF THE [place] IN LAST 30 DAYS: No - Related Data Allergies/Adverse Reactions: IV dye Allergy (Uncoded 08/29/18 18:39) Past Medical History Renal/ Medical History: Denies: Hx Peritoneal Dialysis Past Surgical History: Reports: Hx Section - x1 - Immunizations Hx Diphtheria, Pertussis, Tetanus Vaccination: - unknown Physical Exam - Vital signs Vitals: Temp Pulse Resp BP Pulse Ox 98.2 F 78 16 142/85 H 98 08/29/18 19:27 08/29/18 19:27 08/29/18 19:27 08/29/18 19:27 08/29/18 19:27 Course - Vital Signs Vital signs: Temp Pulse Resp BP Pulse Ox 98.2 F 78 16 142/85 H 98 08/29/18 19:27 08/29/18 19:27 08/29/18 19:27 08/29/18 19:27 08/29/18 19:27
[2018-08-29 20:34] LABS: ABSOLUTE EOSINOPHILS # (AUTO) 0.2 10^3/uL (0.0-0.6); ABSOLUTE MONOCYTES (AUTO) 0.7 10^3/uL (0.1-1.4); ABSOLUTE NEUT (AUTO) 3.3 10^3/uL (1.7-8.2); BASOPHILS % (AUTO) 0.7 % (0-2); EOSINOPHILS % (AUTO) 2.5 % (0-6); HEMOGLOBIN 11.1 g/dL (12.0-15.5); MEAN CORPUSCULAR HEMOGLOBIN 24.2 pg (27.0-33.4); MEAN CORPUSCULAR HGB CONC 31.7 g/dL (32.0-36.0); MEAN CORPUSCULAR VOLUME 76 fl (80-97); MONOCYTES % (AUTO) 11.4 % (3-13); PLATELET COUNT 357 10^3/uL (150-450); RED BLOOD COUNT 4.59 10^6/uL (3.72-5.28); RED CELL DISTRIBUTION WIDTH 16.9 % (11.5-14.0); SEGMENTED NEUTROPHILS % (AUTO) 53.4 % (42-78); TOTAL CELLS COUNTED % (AUTO) 100 %; WHITE BLOOD COUNT 6.3 10^3/uL (4.0-10.5)
[2018-08-29 20:35] LABS: APPEARANCE,URINE SLIGHTLY-CLOUDY; BILIRUBIN,URINE NEGATIVE (NEGATIVE); COLOR,URINE YELLOW; GLUCOSE, URINE NEGATIVE (NEGATIVE); KETONES,URINE NEGATIVE (NEGATIVE); LEUKOCYTE ESTERASE,URINE NEGATIVE (NEGATIVE); NITRITE,URINE NEGATIVE (NEGATIVE); PROTEIN,URINE NEGATIVE (NEGATIVE); URINE SPECIFIC GRAVITY 1.031
[2018-08-29 20:51] LABS: ALANINE AMINOTRANSFERASE 26 U/L (9-52); ALBUMIN 3.8 g/dL (3.5-5.0); ALKALINE PHOSPHATASE 63 U/L (38-126); ANION GAP 10 (5-19); ASPARTATE AMINO TRANSFERASE 19 U/L (14-36); BILIRUBIN,DIRECT 0.2 mg/dL (0.0-0.4); BILIRUBIN,TOTAL 0.2 mg/dL (0.2-1.3); BLOOD UREA NITROGEN 10 mg/dL (7-20); CALCIUM 9.2 mg/dL (8.4-10.2); CARBON DIOXIDE 28 mmol/L (22-30); CHLORIDE 105 mmol/L (98-107); CREATINE KINASE 89 U/L (30-135); GLUCOSE 79 mg/dL (75-110); POTASSIUM 3.8 mmol/L (3.6-5.0); SODIUM 142.7 mmol/L (137-145); TOTAL PROTEIN 7.2 g/dL (6.3-8.2)
--- NOTE | 2018-08-30 00:16 | ER Document Report ---
ED General - General Chief Complaint: Abdominal Cramping Stated Complaint: BODY PAIN Time Seen by Provider: 08/29/18 19:54 Mode of Arrival: Ambulatory TRAVEL OUTSIDE OF THE [place] IN LAST 30 DAYS: No - HPI Notes: Patient is a 33-year-old female that presents to the emergency department for chief complaint of cramping and nausea. 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 Her truck did not have air conditioning today. Around 2 PM she started to feel overheated. She states after that she got lightheaded but did not have a syncopal episode. She reported abdominal cramping as well as diffuse muscle cramping. Patient states she did have some perioral paresthesias as well. After drinking Gatorade and water she had slight improvement. Patient has been in the ED air conditioning while waiting and does feel better now. She denies chest pain, dyspnea, vomitin g, diarrhea, dysuria, urinary frequency and recent illness. Past Medical History: MS Past Surgical History: x1 Social History: Denies drugs alcohol and tobacco Family History: Reviewed and noncontributory for presenting illness Allergies: Reviewed, see documented allergy list. REVIEW OF SYSTEMS: CONSTITUTIONAL : No fever No chills diaphoresis No recent illness EENT: No vision changes No congestion No sore throat CARDIOVASCULAR: No chest pain No palpitations RESPIRATORY: No shortness of breath No cough No difficulty breathing GASTROINTESTINAL: abdominal pain nausea No vomiting No diarrhea GENITOURINARY: No dysuria No hematuria No difficulty urinating MUSCULOSKELETAL: No back pain leg pain arm pain SKIN: No rashes No lesions LYMPHATIC: No swollen, enlarged glands. NEUROLOGICAL: lightheadedness No headache No weakness No paresthesias PSYCHIATRIC: No anxiety No depression PHYSICAL EXAMINATION: Vital signs reviewed, nursing noted reviewed. GENERAL: Well-appearing, well-nourished and in no acute distress. HEAD: Atraumatic, normocephalic. EYES: Eyes appear normal, extraocular movements intact, sclera anicteric, conjunctiva are normal. ENT: nares patent, oropharynx clear without exudates. Moist mucous membranes. NECK: Normal range of motion, supple without lymphadenopathy LUNGS: Breath sounds clear to auscultation bilaterally and equal. No wheezes rales or rhonchi. HEART: Regular rate and rhythm without murmurs ABDOMEN: Soft, nontender, normoactive bowel sounds. No rebound, guarding, or rigidity. No masses appreciated. EXTREMITIES: Nontender, good range of motion, no pitting or edema. NEUROLOGICAL: No focal neurological deficits. Moves all extremities spontaneously Motor and sensory grossly intact on exam. PSYCH: Normal mood, normal affect. SKIN: Warm, Dry, normal turgor, no rashes or lesions noted on exposed skin - Related Data Allergies/Adverse Reactions: IV dye Allergy (Uncoded 08/29/18 18:39) Past Medical History - General Information source: Patient - Social History Smoking Status: Former Smoker Chew tobacco use (# tins/day): No Frequency of alcohol use: None Drug Abuse: None Family History: Reviewed & Not Pertinent Patient has suicidal ideation: No Patient has homicidal ideation: No Renal/ Medical History: Denies: Hx Peritoneal Dialysis Past Surgical History: Reports: Hx Section - x1 - Immunizations Hx Diphtheria, Pertussis, Tetanus Vaccination: - unknown Physical Exam - Vital signs Vitals: Temp Pulse Resp BP Pulse Ox 98.2 F 78 16 142/85 H 98 08/29/18 19:27 08/29/18 19:27 08/29/18 19:27 08/29/18 19:27 08/29/18 19:27 Course - Re-evaluation Re-evalutation: 08/30/18 00:15 Vitals reviewed. Nursing notes reviewed. Patient is well-appearing, not tachycardic and has moist mucous membranes. She does appear hydrated. Her temperature is normal. Lab work shows a mild anemia but is otherwise unremar kable. Patient symptoms are likely related to heat exposure and heat exhaustion. Currently she states all of the cramping and numbness has resolved. She now only is feeling fatigued. Patient states that she has tomorrow off from work and does have air conditioning at home. I feel she is stable at this time for discharge. She will continue to stay hydrated and in the air conditioning. She was counseled on return precautions and follow-up instructions. She is stable at discharge. Laboratory 08/29/18 08/29/18 08/29/18 20:00 20:00 20:00 WBC 6.3 RBC 4.59 Hgb 11.1 L Hct 35.0 L MCV 76 L MCH 24.2 L MCHC 31.7 L RDW 16.9 H Plt Count 357 Seg Neutrophils % 53.4 Lymphocytes % 32.0 Monocytes % 11.4 Eosinophils % 2.5 Basophils % 0.7 Absolute Neutrophils 3.3 Absolute Lymphocytes 2.0 Absolute Monocytes 0.7 Absolute Eosinophils 0.2 Absolute Basophils 0.0 Sodium 142.7 Potassium 3.8 Chloride 105 Carbon Dioxide 28 Anion Gap 10 BUN 10 Creatinine 0.95 Est GFR ( Amer) > 60 Est GFR (Non-Af Amer) > 60 Glucose 79 Calcium 9.2 Total Bilirubin 0.2 Direct Bilirubin 0.2 Neonat Total Bilirubin Not Reportable Neonat Direct Bilirubin Not Reportable Neonat Indirect Bili Not Reportable AST 19 ALT 26 Alkaline Phosphatase 63 Creatine Kinase 89 Total Protein 7.2 Albumin 3.8 Serum HCG, Qual NEGATIVE Urine Color Urine Appearance Urine pH Ur Specific [place] Urine Protein Urine Glucose (UA) Urine Ketones Urine Blood Urine Nitrite Urine Bilirubin Urine Urobilinogen Ur Leukocyte Esterase Urine WBC (Auto) Urine RBC (Auto) Squamous Epi Cells Auto Urine Mucus (Auto) Urine Ascorbic Acid 08/29/18 20:00 WBC RBC Hgb Hct MCV MCH MCHC RDW Plt Count Seg Neutrophils % Lymphocytes % Monocytes % Eosinophils % Basophils % Absolute Neutrophils Absolute Lymphocytes Absolute Monocytes Absolute Eosinophils Absolute Basophils Sodium Potassium Chloride Carbon Dioxide Anion Gap BUN Creatinine Est GFR ( Amer) Est GFR (Non-Af Amer) Glucose Calcium Total Bilirubin Direct Bilirubin Neonat Total Bilirubin Neonat Direct Bilirubin Neonat Indirect Bili AST ALT Alkaline Phosphatase Creatine Kinase Total Protein Albumin Serum HCG, Qual Urine Color YELLOW Urine Appearance SLIGHTLY-CLOUDY Urine pH 5.0 Ur Specific [place] 1.031 Urine Protein NEGATIVE Urine Glucose (UA) NEGATIVE Urine Ketones NEGATIVE Urine Blood NEGATIVE Urine Nitrite NEGATIVE Urine Bilirubin NEGATIVE Urine Urobilinogen 2.0 H Ur Leukocyte Esterase NEGATIVE Urine WBC (Auto) 2 Urine RBC (Auto) 1 Squamous Epi Cells Auto 11 Urine Mucus (Auto) MOD Urine Ascorbic Acid NEGATIVE - Vital Signs Vital signs: Temp Pulse Resp BP Pulse Ox 98.2 F 78 16 142/85 H 98 08/29/18 19:27 08/29/18 19:27 08/29/18 19:27 08/29/18 19:27 08/29/18 19:27 - Laboratory Result Diagrams: 08/29/18 20:00 08/29/18 20:00 Laboratory results interpreted by me: 08/29/18 08/29/18 20:00 20:00 Hgb 11.1 L Hct 35.0 L MCV 76 L MCH 24.2 L MCHC 31.7 L RDW 16.9 H Urine Urobilinogen 2.0 H Discharge - Discharge Clinical Impression: Heat exhaustion Qualifiers: Encounter type: initial encounter Qualified Code(s): T67.5XXA - Heat exhaustion, unspecified, initial encounter Condition: Stable Disposition: HOME, SELF-CARE Instructions: Heat Exhaustion ([facility]) Additional Instructions: Please return to the emergency department if you have any worsening, or concern of your symptoms. Please return to the emergency department if you develop chest pain, difficulty breathing, severe abdominal pain, or ongoing vomiting. Please follow-up with your primary care physician in 2-3 days and any other recommended physicians. If prescribed, take all medications as directed. If you have any questions or concerns do not hesitate to return the emergency department for evaluation. Forms: Parent Work Note Referrals: [facility] [Provider Group] - Follow up as needed
[2018-08-30 00:19] VITALS: BP 125/74
== END 2018-08-30 00:22 | disposition home or self-care (01) ==
LOC: ER 18:35
DX: T67.5XXA Heat exhaustion, unspecified, initial encounter (principal); X30.XXXA Exposure to excessive natural heat, initial encounter; Y92.812 Truck as the place of occurrence of the external cause; Y99.0 Civilian activity done for income or pay; R61 Generalized hyperhidrosis; R11.0 Nausea; R10.9 Unspecified abdominal pain; M79.603 Pain in arm, unspecified; M79.606 Pain in leg, unspecified; D64.9 Anemia, unspecified; R42 Dizziness and giddiness; Z91.041 Radiographic dye allergy status; Z87.891 Personal history of nicotine dependence
CPT/HCPCS: 36415; 80053; 81001; 82550; 84703; 85025; 99283

== ENCOUNTER 2018-10-29 17:47 | Emergency (ER) | payer OTHER ==
[2018-10-29 18:00] VITALS: BP 128/79
[2018-10-29] MEDS ORDERED: NEOMY SULF/POLYMYX B SULF/HC OTIC SUSP 10 ML AD ONE (18:55)
--- NOTE | 2018-10-29 19:04 | ER Document Report ---
HPI - HPI Patient complains to provider of: right ear pain Time Seen by Provider: 10/29/18 18:48 Pain Level: 3 Context: 33-year-old female presents emergency department with chief complaint of right ear pain and drainage from both of her ears. She states it started about 1 week ago. Says she has tried Colace and [id number] eardrops with no success. Denies fevers or chills, complains of muffled hearing, denies tenderness over the mastoid process bilateral, denies neck stiffness. No other complaints - EENT EENT: REPORTS: Ear Pain - bilateral - REPRODUCTIVE Reproductive: DENIES: : Past Medical History - Social History Smoking Status: Never Smoker Frequency of alcohol use: None Drug Abuse: None Family History: Reviewed & Not Pertinent Patient has suicidal ideation: No Patient has homicidal ideation: No Renal/ Medical History: Denies: Hx Peritoneal Dialysis Past Surgical History: Reports: Hx Section - x1 - Immunizations Hx Diphtheria, Pertussis, Tetanus Vaccination: - unknown Vertical Provider Document - CONSTITUTIONAL Notes: PHYSICAL EXAMINATION: Reviewed vital signs and charting by RN GENERAL: Alert, interacts well. No acute distress. HEAD: Normocephalic, atraumatic. EYES: Pupils equal and round. Extraocular movements intact. ENT: Oral mucosa moist, tongue midline. Unable to visualize left TM due to cerumen impaction. Unable to completely visualize right TM but ear canal is inflamed and erythematous with wax buildup, patient has tenderness when palpating the tragus on the right side, no mastoid tenderness bilateral. NECK: Full range of motion. Trachea midline. LUNGS: Clear to auscultation bilaterally, no wheezes, rales, or rhonchi. No respiratory distress. HEART: Regular rate and rhythm. No murmur ABDOMEN: soft, non-tender. No distention. Bowel sounds present EXTREMITIES: Moves all 4 extremities spontaneously. No edema, No cyanosis. PSYCH: Normal affect, normal mood. SKIN: Warm, dry, normal turgor. No rashes or lesions noted. - INFECTION CONTROL TRAVEL OUTSIDE OF THE [place] IN LAST 30 DAYS: No Course - Re-evaluation Re-evalutation: 10/29/18 19:05 Symptoms consistent with acute otitis externa of the right ear. No evidence of mastoiditis at this time. Plan is to place her on antibiotic eardrops and have her follow-up with her primary in the next 72 to 96 hours. Stable for discharge. - Vital Signs Vital signs: Temp Pulse Resp BP Pulse Ox 97.8 F 76 16 128/79 H 97 10/29/18 17:50 10/29/18 17:50 10/29/18 17:50 10/29/18 17:50 10/29/18 17:50 Discharge - Discharge Clinical Impression: Otitis externa Qualifiers: Otitis externa type: unspecified type Chronicity: acute Laterality: right Qualified Code(s): H60.501 - Unspecified acute noninfective otitis externa, right ear Condition: Good Disposition: HOME, SELF-CARE Instructions: Otitis Externa ([facility]), Use of Ear Drops ([facility]) Additional Instructions: You are seen in the emergency department for edition called otitis externa, also called swimmer's ear. This requires antibiotic drops. He has been given some here in the emergency department and you should put 4 drops in your right ear 4 times per day for 7 days. Also, your left ear did not show evidence of otitis externa but it did have a lot of wax buildup. You can try to do gentle irrigation to try to loosen up the wax. If you develop fever, tenderness on the bone behind her ear, worsening ear drainage after using the drops for 3 to 4 days, you have complete hearing loss, or you have any other concerning symptoms please return to the emergency department for reevaluation. Please follow[place] with [facility] [place] the next several days. Referrals: RYANN ELLIS MD [Primary Care Provider] - Follow up as needed
== END 2018-10-29 19:09 | disposition home or self-care (01) ==
LOC: ER 17:47
DX: H60.501 Unspecified acute noninfective otitis externa, right ear (principal); H92.13 Otorrhea, bilateral; H92.03 Otalgia, bilateral; H61.23 Impacted cerumen, bilateral
CPT/HCPCS: 99282; J3490

== ENCOUNTER 2018-12-01 06:30 | Emergency (ER) | payer OTHER ==
[2018-12-01 08:23] LABS: ABSOLUTE EOSINOPHILS # (AUTO) 0.1 10^3/uL (0.0-0.6); ABSOLUTE LYMPHOCYTES (AUTO) 1.6 10^3/uL (0.5-4.7); ABSOLUTE MONOCYTES (AUTO) 0.5 10^3/uL (0.1-1.4); ABSOLUTE NEUT (AUTO) 2.2 10^3/uL (1.7-8.2); BASOPHILS % (AUTO) 0.9 % (0-2); EOSINOPHILS % (AUTO) 2.4 % (0-6); HEMOGLOBIN 12.2 g/dL (12.0-15.5); LYMPHOCYTES % (AUTO) 35.6 % (13-45); MEAN CORPUSCULAR HEMOGLOBIN 25.1 pg (27.0-33.4); MEAN CORPUSCULAR HGB CONC 32.2 g/dL (32.0-36.0); MEAN CORPUSCULAR VOLUME 78 fl (80-97); MONOCYTES % (AUTO) 11.9 % (3-13); PLATELET COUNT 315 10^3/uL (150-450); RED BLOOD COUNT 4.86 10^6/uL (3.72-5.28); RED CELL DISTRIBUTION WIDTH 16.5 % (11.5-14.0); SEGMENTED NEUTROPHILS % (AUTO) 49.2 % (42-78); TOTAL CELLS COUNTED % (AUTO) 100 %; WHITE BLOOD COUNT 4.5 10^3/uL (4.0-10.5)
[2018-12-01 08:44] LABS: ALKALINE PHOSPHATASE 52 U/L (38-126); ANION GAP 6 (5-19); ASPARTATE AMINO TRANSFERASE 51 U/L (14-36); BILIRUBIN,DIRECT 0.3 mg/dL (0.0-0.4); BILIRUBIN,TOTAL 0.4 mg/dL (0.2-1.3); BLOOD UREA NITROGEN 15 mg/dL (7-20); CARBON DIOXIDE 28 mmol/L (22-30); CHLORIDE 106 mmol/L (98-107); CREATINE KINASE 82 U/L (30-135); GLUCOSE 89 mg/dL (75-110); POTASSIUM 4.5 mmol/L (3.6-5.0); TOTAL PROTEIN 7.5 g/dL (6.3-8.2)
--- NOTE | 2018-12-01 08:52 | ER Document Report ---
Entered by NAYLA JULIEN SCRIBE 12/01/18 0744 Acting as scribe for:WILLIE BAILEY MD ED Extremity Problem, Upper - General Chief Complaint: Arm Problem Stated Complaint: LEFT ARM PAIN Time Seen by Provider: 12/01/18 07:42 Mode of Arrival: Ambulatory Information source: Patient Notes: 33 year old female that presents to the emergency department today with complai nts of LUE pain. Patient states she was seen by her PCP yesterday for this left upper extremity pain and her PCP referred her to the emergency department to rule out a deep vein thrombosis in her left upper extremity. Patient states it hurts if she tries to make a fist. 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 Patient denies any smoking history or recent central line/port placement. TRAVEL OUTSIDE OF THE [place] 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 Family History: Reviewed & Not Pertinent Past Surgical History: Reports: Hx Section - x1 - Immunizations Hx Diphtheria, Pertussis, Tetanus Vaccination: - unknown Review of Systems - Review of Systems Constitutional: No symptoms reported EENT: No symptoms reported Cardiovascular: No symptoms reported Respiratory: No symptoms reported Gastrointestinal: No symptoms reported Genitourinary: No symptoms reported Female Genitourinary: No symptoms reported Musculoskeletal: See HPI, Other - LUE pain Skin: No symptoms reported Hematologic/Lymphatic: No symptoms reported Neurological/Psychological: No symptoms reported -: Yes All other systems reviewed and negative Physical Exam - Vital signs Vitals: Temp Pulse Resp BP Pulse Ox 97.8 F 51 L 20 133/80 H 100 12/01/18 06:55 12/01/18 06:55 12/01/18 06:55 12/01/18 06:55 12/01/18 06:55 - Notes Notes: Physical Exam: General: Alert, appears well. HEENT: Normocephalic. Atraumatic. PERRL. Extraocular movements intact. Oropharynx clear. Neck: Supple. Left posterior cervical musculature tenderness with palpation with tenderness into the trapezius muscle. Respiratory: No respiratory distress. Clear and equal breath sounds bilaterally. Cardiovascular: Regular rate and rhythm. Abdominal: Obese. Non-tender. No distension. Normal Bowel Sounds. Back: No gross abnormalities. Extremities: Moves all four extremities. Upper extremities: Left biceps and lateral upper arm are tender with palpation. Left forearm tenderness over the brachioradialis muscle. Complains of pain when she makes a fist on the left. Flexion of left elbow against resistance causes pa in. No medial arm tenderness with palpation, no axilla tenderness with palpation, no scapular musculature tenderness with palpation. Lower extremities: Normal inspection. No edema. Normal ROM. Neurological: Normal cognition. AAOx4. Normal speech. Psychological: Normal affect. Normal Mood. Skin: Warm. Dry. Normal color. Course - Vital Signs Vital signs: Temp Pulse Resp BP Pulse Ox 97.8 F 51 L 20 133/80 H 100 12/01/18 06:55 12/01/18 06:55 12/01/18 06:55 12/01/18 06:55 12/01/18 06:55 - Laboratory Result Diagrams: 12/01/18 08:10 12/01/18 08:10 Laboratory results interpreted by me: 12/01/18 12/01/18 12/01/18 08:10 08:10 08:10 MCV 78 L MCH 25.1 L RDW 16.5 H D-Dimer 1.45 H AST 51 H - Diagnostic Test Radiology reviewed: Image reviewed - Preliminary report is no DVT for the left upper extremity venous Doppler. Discharge - Discharge Clinical Impression: Muscle strain of left upper extremity Qualifiers: Encounter type: initial encounter Qualified Code(s): S46.912A - Strain of unspecified muscle, fascia and tendon at shoulder and upper arm level, left arm, initial encounter Condition: Stable Disposition: HOME, SELF-CARE Additional Instructions: Muscle Strain You have strained the muscles in your left upper extremity. This often occurs with strenuous exertion, or during an injury that suddenly stretches the muscle. The seriousness of a strain varies. Some strains heal within days, others cause problems for months. X-rays cannot show a muscle strain. X-rays are taken only if symptoms suggest that a fracture could be present. The usual treatment of a muscle strain is rest and ice packs. Sometimes, a sling, splint, or crutches may be necessary to rest the muscle. The muscle can be used again once pain subsides. Severe strains require a special exercise and stretching program to prevent permanent stiffness and disability. Your doctor will advise you if this will be necessary. Call the doctor immediately if pain or swelling becomes severe, or if numbness or discoloration develop. The venous Doppler study was negative for DVT or blood clots. The physical exam was most consistent with muscle strain to your left upper arm extending up into the neck. Use the sling to support the weight of your arm and allow your muscles to relax. Take the medications as prescribed for muscle relaxation and pain control. Take ibuprofen 800 mg every 8 hours for the next few days. Use moist heat to the painful muscles. Limit using the left upper arm for the next few days. Follow-up with your primary care provider if not improving. RETURN TO THE EMERGENCY ROOM IF ANY NEW OR WORSENING SYMPTOMS. Prescriptions: Cyclobenzaprine HCl [Flexeril 5 mg Tablet] 5 mg PO TID PRN #15 tablet PRN Reason: Hydrocodone/Acetaminophen [[place] 5-325 mg Tablet] 1 tab PO Q4 PRN #15 tablet PRN Reason: Forms: Return to Work Scribe Attestation: 12/01/18 08:38 I personally performed the services described in the documentation, reviewed and edited the documentation which was dictated to the scribe in my presence, and it accurately records my words and actions. I personally performed the services described in the documentation, reviewed and edited the documentation which was dictated to the scribe in my presence, and it accurately records my words and actions.
[2018-12-01 10:59] VITALS: BP 133/77
--- NOTE | 2018-12-02 13:27 | XCELERA REPORT ---
[address] [address] Upper Extremity Venous Evaluation Name: SOPHIA GUO Age: 33 yrs Gender: Female : 1985 Patient Status: Emergency Patient Location: ER Study Date: 12/01/2018 09:58 AM Procedure: Unilateral duplex scan of the left upper extremity veins was performed, including responses to compression and other maneuvers. Reason For Study: left upper swelling; elevated d-dimer Ordering Physician: WILLIE BAILEY Performed By: Taurus Lee Left Sided Venous Evaluation Normal vessel filling wall to wall, compression and augmentation as well as Colour flow down to the forearm veins. Interpretation Summary No duplex evidence of DVT or obstruction in the left upper extremity. : WILLIE BAILEY > Dionte Costello
== END 2018-12-01 10:59 | disposition home or self-care (01) ==
LOC: ER 06:30
DX: S46.912A Strain of unspecified muscle, fascia and tendon at shoulder and upper arm level, left arm, initial encounter (principal); M79.602 Pain in left arm; X50.0XXA Overexertion from strenuous movement or load, initial encounter
CPT/HCPCS: 36415; 80053; 82550; 84703; 85025; 85379; 93971; 99284

== ENCOUNTER 2018-12-25 10:19 | Emergency (ER) | payer OTHER ==
--- NOTE | 2018-12-25 11:12 | ER Document Report ---
ED Medical Screen (RME) - General Chief Complaint: Abdominal Pain Stated Complaint: STOMACH PAIN Time Seen by Provider: 12/25/18 11:09 Mode of Arrival: Ambulatory Information source: Patient Notes: This 33-year-old female with history of MS presents emergency department with left upper quad abdominal pain that started yesterday. She reports it feels sharp. She reports she thought it was gas to try to go the bathroom did not help. No other complaints such as fever vomiting diarrhea. Denies pain with void. Patient is smiling as she talks but complains of pain with palpation to her abdomen.. I have greeted and performed a rapid initial assessment of this patient. A comprehensive ED assessment and evaluation of the patient, analysis of test results and completion of the medical decision making process will be conducted by additional ED providers. Dictation of this chart was performed using voice recognition software; therefore, there may be some unintended grammatical errors. TRAVEL OUTSIDE OF THE [place] IN LAST 30 DAYS: No - Related Data Allergies/Adverse Reactions: IV dye Allergy (Uncoded 12/25/18 10:57) Past Medical History - Social History Chew tobacco use (# tins/day): Yes Frequency of alcohol use: None Drug Abuse: None Renal/ Medical History: Denies: Hx Peritoneal Dialysis Past Surgical History: Reports: Hx Section - x1 - Immunizations Hx Diphtheria, Pertussis, Tetanus Vaccination: - unknown Physical Exam - Vital signs Vitals: Temp Pulse Resp BP Pulse Ox 98.1 F 80 16 133/77 H 100 12/25/18 10:12/25/18 10:12/25/18 10:12/25/18 10:12/25/18 10:26 Course - Vital Signs Vital signs: Temp Pulse Resp BP Pulse Ox 98.1 F 80 16 133/77 H 100 12/25/18 10:12/25/18 10:12/25/18 10:12/25/18 10:12/25/18 10:26
[2018-12-25 12:09] LABS: ABSOLUTE EOSINOPHILS # (AUTO) 0.1 10^3/uL (0.0-0.6); ABSOLUTE LYMPHOCYTES (AUTO) 1.6 10^3/uL (0.5-4.7); ABSOLUTE MONOCYTES (AUTO) 0.5 10^3/uL (0.1-1.4); ABSOLUTE NEUT (AUTO) 2.8 10^3/uL (1.7-8.2); BASOPHILS % (AUTO) 0.8 % (0-2); HEMATOCRIT 37.1 % (36.0-47.0); HEMOGLOBIN 11.8 g/dL (12.0-15.5); LYMPHOCYTES % (AUTO) 31.6 % (13-45); MEAN CORPUSCULAR HGB CONC 31.8 g/dL (32.0-36.0); MEAN CORPUSCULAR VOLUME 79 fl (80-97); MONOCYTES % (AUTO) 10.4 % (3-13); PLATELET COUNT 320 10^3/uL (150-450); RED BLOOD COUNT 4.72 10^6/uL (3.72-5.28); RED CELL DISTRIBUTION WIDTH 16.1 % (11.5-14.0); SEGMENTED NEUTROPHILS % (AUTO) 55.2 % (42-78); TOTAL CELLS COUNTED % (AUTO) 100 %; WHITE BLOOD COUNT 5.1 10^3/uL (4.0-10.5)
--- NOTE | 2018-12-25 12:28 | RADIOLOGY REPORT (SQ) ---
EXAM DESCRIPTION: KUB/ABDOMEN (SINGLE VIEW) COMPLETED DATE/TIME: 12/25/2018 12:15 pm REASON FOR STUDY: abd pain COMPARISON: None. NUMBER OF VIEWS: One view. TECHNIQUE: Supine radiographic image of the abdomen acquired. LIMITATIONS: None. FINDINGS: BOWEL GAS PATTERN: Nonobstructive bowel gas pattern. Mild colonic stool burden. CALCIFICATIONS: None. SOFT TISSUES: No abnormal findings. HARDWARE: IUD. BONES: No acute fracture. OTHER: No other finding. IMPRESSION: Nonobstructive bowel gas pattern. TECHNICAL DOCUMENTATION: JOB ID: [id number] [employer]- All Rights Reserved Reading location - IP/workstation name: [email or web address]
--- NOTE | 2018-12-25 12:29 | ER Document Report ---
ED General - General Chief Complaint: Abdominal Pain Stated Complaint: STOMACH PAIN Time Seen by Provider: 12/25/18 11:09 Mode of Arrival: Ambulatory TRAVEL OUTSIDE OF THE [place] IN LAST 30 DAYS: No - HPI Notes: Patient is a 33-year-old female with a history of MS who presents complaining of left mid to left lower quadrant abdominal pain that does not radiate and has been present since yesterday. Patient describes the pain as a discomfort and occasional sharp pain. Patient states that pushing in the area makes the pain worse. She tried to have a bowel movement to see if that would help, but when she was bearing down noticed increased pain. She has not had any melena or hematochezia. She is able to eat and drink without difficulty, but does have decreased p.o. intake. Denies drug allergies. No other concerns or complaints. Abdominal surgical history consists of C-sections. Denies any headache, fever, neck pain, URI, sore throat, chest pain, palpitations, syncope, cough, shortness of breath, wheeze, dyspnea, nausea/vomiting/diarrhea, urinary retention, dysuri a, hematuria, back pain, or rash. - Related Data Allergies/Adverse Reactions: IV dye Allergy (Uncoded 12/25/18 10:57) Past Medical History - General Information source: Patient - Social History Smoking Status: Never Smoker Chew tobacco use (# tins/day): Yes Frequency of alcohol use: None Drug Abuse: None Family History: Reviewed & Not Pertinent Patient has suicidal ideation: No Patient has homicidal ideation: No Renal/ Medical History: Denies: Hx Peritoneal Dialysis Past Surgical History: Reports: Hx Section - x1 - Immunizations Hx Diphtheria, Pertussis, Tetanus Vaccination: - unknown Review of Systems - Review of Systems -: Yes All other systems reviewed and negative Physical Exam - Vital signs Vitals: Temp Pulse Resp BP Pulse Ox 98.1 F 80 16 133/77 H 100 12/25/18 10:26 12/25/18 10:26 12/25/18 10:26 12/25/18 10:12/25/18 10:26 - Notes Notes: PHYSICAL EXAMINATION: GENERAL: Well-appearing, well-nourished and in no acute distress. HEAD: Atraumatic, normocephalic. EYES: Pupils equal round and reactive to light, extraocular movements intact, sclera anicteric, conjunctiva are normal. ENT: Nares patent and without discharge. oropharynx clear without exudates. No tonsilar hypertrophy or erythema. Moist mucous membranes. NECK: Normal range of motion, supple without lymphadenopathy LUNGS: Breath sounds clear to auscultation bilaterally and equal. No wheezes rales or rhonchi. HEART: Regular rate and rhythm without murmurs, rubs, gallops. ABDOMEN: Soft, nondistended abdomen. No guarding, no rebound. Normal bowel sounds present. No CVA tenderness bilaterally. + tenderness left mid to LLQ. No lower pelvic tenderness. Hernandez neg. Musculoskeletal: FROM to passive/active. Strength 5+/5. Extremities: No cyanosis, clubbing, or edema b/l. Peripheral pulses 2+. Capillary refill less than 3 seconds. NEUROLOGICAL: Normal speech, normal gait. PSYCH: Normal mood, normal affect. SKIN: Warm, Dry, normal turgor, no rashes or lesions noted. Course - Re-evaluation Re-evalutation: 12/25/18 17:22 Patient is an afebrile, well-hydrated, 33-year-old female who presents to the ED with LLQ pain with left ovarian cyst. Vitals are acceptable without any significant tachycardia, tachypnea, or hypoxia. PE is otherwise unremarkable. Labs unremarkable including urine and hcg. Patient is nontoxic-appearing is tolerating p.o. without any difficulties. CT negative aside from ovarian cyst. See TVUS, no torsion. No other labs or imaging warranted at this time based on H&P. Low suspicion/risk for acute appendicitis, bowel obstruction, acute cholecystitis, acute cholangitis, perforated diverticulitis, incarcerated hernia, pancreatitis, perforated ulcer, peritonitis, sepsis, pelvic inflammatory disease, ectopic , tubo-ovarian abscess, ovarian torsion, or other systemic emergent condition at this time. Patient is aware that her condition can change from initial presentation and she needs to monitor symptoms closely and seek medical attention if any acute changes. Toradol given IV. I will send her home with prescription for naproxen. Conservative measures otherwise for symptoms. Recheck with your PCM/OBGYN in 3-5 days. Return to the ED with any worsening/concerning symptoms otherwise as reviewed in discharge. Patient is in agreement. - Vital Signs Vital signs: Temp Pulse Resp BP Pulse Ox 98.1 F 80 16 133/77 H 100 09/24/19 10:26 12/25/18 10:26 12/25/18 10:26 12/25/18 10:26 12/25/18 10:26 - Laboratory Result Diagrams: 12/25/18 11:35 12/25/18 11:35 Laboratory results interpreted by me: 12/25/18 12/25/18 11:35 11:35 Hgb 11.8 L MCV 79 L MCH 25.0 L MCHC 31.8 L RDW 16.1 H Urine Protein 30 H Discharge - Discharge Clinical Impression: Left ovarian cyst, Left lower quadrant abdominal pain Condition: Stable Disposition: HOME, SELF-CARE Instructions: Ovarian Cyst ([facility]) Additional Instructions: Maintain fluid intake Proper hygienic technique Keep the skin clean Tylenol/ibuprofen as needed F/u with your PCM/OBGYN in 3-5 days for a recheck Return to the ED with any development of LUIS/fever, trouble with vision, eye redn ess, worsening pain, urethral discharge, urinary retention, blood in the urine, flank pain, worsening abdominal pain, n/v/d, Chest Pain, shortness of breath, joint pains, trouble breathing, or any other worsening/concerning symptoms as needed otherwise. Prescriptions: Naproxen 500 mg PO BID #14 tablet Forms: Elevated Blood Pressure Referrals: [facility] [Provider Group] - Follow up in 3-5 days
[2018-12-25 12:34] LABS: ALKALINE PHOSPHATASE 56 U/L (38-126); ANION GAP 8 (5-19); ASPARTATE AMINO TRANSFERASE 21 U/L (14-36); BILIRUBIN,TOTAL 0.5 mg/dL (0.2-1.3); BLOOD UREA NITROGEN 14 mg/dL (7-20); CALCIUM 9.5 mg/dL (8.4-10.2); CARBON DIOXIDE 30 mmol/L (22-30); CHLORIDE 103 mmol/L (98-107); GLUCOSE 86 mg/dL (75-110); POTASSIUM 4.1 mmol/L (3.6-5.0); TOTAL PROTEIN 7.6 g/dL (6.3-8.2)
[2018-12-25 12:46] LABS: APPEARANCE,URINE SLIGHTLY-CLOUDY; BILIRUBIN,URINE NEGATIVE (NEGATIVE); COLOR,URINE YELLOW; GLUCOSE, URINE NEGATIVE (NEGATIVE); KETONES,URINE NEGATIVE (NEGATIVE); LEUKOCYTE ESTERASE,URINE NEGATIVE (NEGATIVE); NITRITE,URINE NEGATIVE (NEGATIVE); PROTEIN,URINE 30 mg/dL (NEGATIVE); URINE SPECIFIC GRAVITY 1.029; UROBILINOGEN,URINE NEGATIVE mg/dL (<2.0)
[2018-12-25] MEDS ORDERED: FAMOTIDINE INJ/PF 20 MG/2 ML SDV IV ONE (13:40)
[2018-12-25] MEDS ORDERED: METHYLPREDNISOLONE INJ 125 MG/2 ML SDV IV ONE (13:40)
[2018-12-25] MEDS ORDERED: DIPHENHYDRAMINE HCL 50 MG/ML VIAL IV ONE (13:40)
--- NOTE | 2018-12-25 15:14 | RADIOLOGY REPORT (SQ) ---
EXAM DESCRIPTION: CT ABD/PELVIS WITH IV ONLY COMPLETED DATE/TIME: 12/25/2018 2:54 pm REASON FOR STUDY: Lt mid/LLQ pain COMPARISON: Ultrasound of the abdomen from 12/06/2007. TECHNIQUE: CT scan of the abdomen and pelvis performed using helical scanning technique with dynamic intravenous contrast injection. No oral contrast. Images reviewed with lung, soft tissue, and bone windows. Reconstructed coronal and sagittal MPR images reviewed. Delayed images for evaluation of the urinary system also acquired. All images stored on PACS. All CT scanners at this facility use dose modulation, iterative reconstruction, and/or weight based d osing when appropriate to reduce radiation dose to as low as reasonably achievable (ALARA). [facility]: Dose Right [facility]: CareDose [facility]: Dose Right [facility]: Teradose 4D [facility]: BuzzSpice CONTRAST TYPE AND DOSE: contrast/concentration: Isovue 350.00 mg/ml; Total Contrast Delivered: 99.0 ml; Total Saline Delivered: 61.8 ml RENAL FUNCTION: GFR > 60. RADIATION DOSE: CT Rad equipment meets quality standard of care and radiation dose reduction techniq ues were employed. CTDIvol: 21.1 mGy. DLP: 2384 mGy-cm.. LIMITATIONS: None. FINDINGS: LOWER CHEST: No basilar consolidation, pleural effusion or pneumothorax. No cardiomegaly or pericardial effusion. LIVER: The liver morphology is non cirrhotic. The portal veins are patent. There is no hepatic mass or dilatation of the intrahepatic biliary ducts. SPLEEN: The spleen is normal in size. PANCREAS: There is no abnormality of the pancreas. GALLBLADDER: No abnormality that is apparent on CT. ADRENAL GLANDS: No abnormality. RIGHT KIDNEY AND URETER: No solid masses. No calcifications. No hydronephrosis or hydroureter. LEFT KIDNEY AND URETER: No solid masses. No calcifications. No hydronephrosis or hydroureter. AORTA AND VESSELS: No aneurysm or dissection of the abdominal aorta. The celiac, SMA and renal arter ies are patent RETROPERITONEUM: No retroperitoneal adenopathy or mass. BOWEL AND PERITONEAL CAVITY: No evidence of obstruction, bowel wall thickening, or pericolonic/ perie nteric inflammation. No mesenteric adenopathy, free intraperitoneal gas/ free fluid, or mesenteric m ass. APPENDIX: Normal. PELVIS: There is an IUD in place. There is a 1.9 x 1.4 cm cystic structure in the left adnexa. Ther e is no right adnexal mass or free fluid in the pelvis. The urinary bladder is distended and normal in appearance. ABDOMINAL WALL: Miniscule fat containing periumbilical hernia BONES: No no acute findings. OTHER: No other finding. IMPRESSION: 1. No acute intra-abdominal abnormality. 2. 1.9 cm cystic structure in the left adnexa that could represent a dominant ovarian follicle or a cyst. TECHNICAL DOCUMENTATION: JOB ID: [id number] Quality ID # [id number]: Final reports with documentation of one or more dose reduction techniques (e.g., Au tomated exposure control, adjustment of the mA and/or kV according to patient size, use of iterative reconstruction technique) 2010 [facility]- All Rights Reserved Reading location - IP/workstation name: [email or web address]
--- NOTE | 2018-12-25 16:55 | RADIOLOGY REPORT (SQ) ---
EXAM DESCRIPTION: U/S NON OB PEL TV W/DOPPLER COMPLETED DATE/TIME: 12/25/2018 4:39 pm REASON FOR STUDY: left lower pelvic pain eval torsion COMPARISON: None. TECHNIQUE: Dynamic and static grayscale images acquired of the pelvis via transvaginal approach and recorded on PACS. Additional selected color Doppler and spectral images recorded. LIMITATIONS: None. FINDINGS: UTERUS: Contour normal. No mass. ENDOMETRIAL STRIPE: No focal or generalized thickening. No masses. CERVIX: The cervix measures 2.6 cm in length. Nabothian cysts. RIGHT OVARY AND DOPPLER: Normal size. No worrisome masses. Normal arterial vascular flow without evid ence for torsion. LEFT OVARY AND DOPPLER: Normal size. Left ovarian dominant follicle measures 1.7 x 1.6 x 2.0 cm No w orrisome masses. Normal arterial vascular flow without evidence for torsion. FREE FLUID: None noted. OTHER: No other significant finding. MEASUREMENTS: UTERUS: 8.6 x 5.8 x 4.6 cm ENDOMETRIAL STRIPE: IUD visualized RIGHT OVARY: 1.9 x 2.8 x 2.9 cm LEFT OVARY: 3.7 x 2.6 x 2.6 cm IMPRESSION: 1. Left ovarian dominant follicle. 2. Nabothian cyst in the cervix. 3. IUD within the endometrial cavity. TECHNICAL DOCUMENTATION: JOB ID: [id number]- All Rights Reserved Rev-08/18 Reading location - IP/workstation name: [email or web address]
[2018-12-25] MEDS ORDERED: KETOROLAC TROMETHAMINE INJ/PF 30 MG/1 ML SDV IV ONE (17:25)
[2018-12-25 17:50] VITALS: BP 123/83
== END 2018-12-25 17:51 | disposition home or self-care (01) ==
LOC: ER 10:19
DX: N83.202 Unspecified ovarian cyst, left side (principal); R10.32 Left lower quadrant pain; Z91.041 Radiographic dye allergy status; Z72.0 Tobacco use
CPT/HCPCS: 99284; 96374; 96375; 36415; 83690; 85025; 81025; 80053; 81001; 74018; 76830; 93976; 74177; J1200; J2930; J1885; S0028

== ENCOUNTER 2019-03-06 18:05 | Emergency (ER) | payer OTHER ==
[2019-03-06 18:37] VITALS: BP 148/94
--- NOTE | 2019-03-06 18:51 | ER Document Report ---
HPI - HPI Patient complains to provider of: Suture recheck Time Seen by Provider: 03/06/19 18:43 Onset: Other Quality of pain: Achy Context: 34-year-old female presents emergency department with complaints of pain to her suture site. Reports she received sutures after she cut herself on a door Monday. Reports that she cut herself worked all day. 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 Denies fever vomiting diarrhea. 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 IN LAST 30 DAYS: No - HEENT HEENT: Atraumatic, Normocephalic - NECK Neck: Normal Inspection, Supple. negative: Lymphadenopathy-Left, Lymphadenopathy-Right - RESPIRATORY Respiratory: Breath Sounds Normal, No Respiratory Distress. negative: Rhonchi, Wheezing - CARDIOVASCULAR Cardiovascular: Regular Rate, Regular Rhythm - MUSCULOSKELETAL/EXTREMETIES Musculoskeletal/Extremeties: MAEW, FROM, Tender - Left upper arm ttp - NEURO Level of Consciousness: Awake, Alert, Appropriate Motor/Sensory: No Motor Deficit - DERM Integumentary: Warm, Dry, Laceration - 3 sutures intact to left upper arm site benign no erythema no swelling no warmth no discharge good radial pulse cap refill less than 2 seconds. Course - Re-evaluation Re-evalutation: 03/06/19 18:55 34-year-old female presents with complaints of pain at her suture site. Site looks benign, no swelling no erythema no warmth no discharge. Patient was instructed on this. She was instructed on signs and symptoms of infection. She was instructed to return to the emergency department immediately for those symptoms. Otherwise she should follow-up as an directed for suture removal. - Vital Signs Vital signs: Temp Pulse Resp BP Pulse Ox 98.5 F 70 20 148/94 H 03/06/19 18:35 03/06/19 18:35 03/06/19 18:35 03/06/19 18:35 Discharge - Discharge Clinical Impression: Suture check Condition: Stable Disposition: HOME, SELF-CARE Additional Instructions: *You have been treated for a suture recheck *Monitor the site for signs of infection such as increasing pain, redness, swelling, warmth *Keep the area clean *Return to ED for signs of infection, worsening condition, changes, needs *Return as instructed for suture removal Monitor your blood pressure. Your blood pressure was elevated today. This may be because you were anxious, in pain or because you need medication. It is important to follow up with your primary care provider for full evaluation. Forms: Elevated Blood Pressure
== END 2019-03-06 18:53 | disposition home or self-care (01) ==
LOC: ER 18:05
DX: S41.112D Laceration without foreign body of left upper arm, subsequent encounter (principal); W45.8XXD Other foreign body or object entering through skin, subsequent encounter
CPT/HCPCS: 99282

== ENCOUNTER → 2019-03-15 | Outpatient (CLI) | payer OTHER ==
--- NOTE | 2019-03-15 14:35 | WOMENS IMAGING REPORT ---
EXAM DESCRIPTION: U/S EXTREMITY NONVASCULAR COMP COMPLETED DATE/TIME: 03/15/2019 1:53 pm REASON FOR STUDY: M79.602 LEFT ARM PAIN COMPARISON: None. TECHNIQUE: Dynamic and static grayscale images acquired of the localized site of clinical concern an d recorded on PACS. Additional selected color Doppler and spectral images recorded. SITE OF CONCERN: Left upper extremity incision site LIMITATIONS: None. FINDINGS: SKIN AND SUBCUTANEOUS TISSUES: No masses. No fluid collections. No edema. No foreign chandrakant s. DEEP SOFT TISSUES/MUSCLES: No masses. No fluid collections. No edema. VASCULAR: No increased or decreased vascularity. No occlusions. OTHER: No other significant finding. IMPRESSION: NO SOFT TISSUE MASS, FLUID COLLECTION, OR FOREIGN BODY. TECHNICAL DOCUMENTATION: JOB ID: [id number] [employer]- All Rights Reserved Reading location - IP/workstation name: [email or web address]
== END ==
LOC: WI 13:25
PROVIDERS: ATTEND Physician Assistant
DX: M79.602 Pain in left arm (principal)
CPT/HCPCS: 76881

== ENCOUNTER → 2019-03-21 | Outpatient (CLI) | payer OTHER ==
--- NOTE | 2019-03-21 16:35 | RADIOLOGY REPORT (SQ) ---
EXAM DESCRIPTION: SHOULDER LEFT 2 OR MORE VIEWS COMPLETED DATE/TIME: 03/21/2019 3:15 pm REASON FOR STUDY: NUMBNESS AND ARM PAIN R20.0 ANESTHESIA OF SKIN COMPARISON: None. NUMBER OF VIEWS: Three views. TECHNIQUE: Internal rotation, external rotation, and Y view images acquired of the left shoulder. LIMITATIONS: None. FINDINGS: MINERALIZATION: Normal. BONES: No acute fracture. No worrisome bone lesions. JOINTS: No glenohumeral dislocation. No acromioclavicular joint widening VISUALIZED LUNGS AND RIBS: No pneumothorax. No rib fracture. SOFT TISSUES: No radiopaque foreign body. OTHER: No other significant finding. IMPRESSION: NEGATIVE STUDY OF THE LEFT SHOULDER. NO RADIOGRAPHIC EVIDENCE OF ACUTE INJURY. TECHNICAL DOCUMENTATION: JOB ID: [id number] [employer]- All Rights Reserved Reading location - IP/workstation name: [email or web address]
--- NOTE | 2019-03-21 16:35 | RADIOLOGY REPORT (SQ) ---
EXAM DESCRIPTION: FOREARM LEFT COMPLETED DATE/TIME: 03/21/2019 3:15 pm REASON FOR STUDY: NUMBNESS AND ARM PAIN R20.0 ANESTHESIA OF SKIN COMPARISON: None. NUMBER OF VIEWS: Two views. TECHNIQUE: Two radiographic images acquired of the left forearm, including elbow and wrist in at lorin st one projection. LIMITATIONS: None. FINDINGS: MINERALIZATION: Normal. BONES: No acute fracture. No worrisome bone lesions. SOFT TISSUES: No obvious swelling or foreign body. OTHER: No other significant finding. IMPRESSION: NEGATIVE STUDY OF THE LEFT FOREARM. NO RADIOGRAPHIC EVIDENCE OF ACUTE INJURY. TECHNICAL DOCUMENTATION: JOB ID: [id number] [employer]- All Rights Reserved Reading location - IP/workstation name: [email or web address]
== END ==
LOC: OD 14:57
PROVIDERS: ATTEND Surgery
DX: M79.602 Pain in left arm (principal); R20.0 Anesthesia of skin

== ENCOUNTER → 2019-08-29 | Outpatient (CLI) | payer BC ==
--- NOTE | 2019-08-29 12:59 | RADIOLOGY REPORT (SQ) ---
EXAM DESCRIPTION: KUB IMAGES COMPLETED DATE/TIME: 08/29/2019 12:48 pm REASON FOR STUDY: GENERALIZED ABDOMINAL PAIN R10.84 GENERALIZED ABDOMINAL PAIN COMPARISON: CT abdomen pelvis 12/25/2018 KUB 12/25/2018 NUMBER OF VIEWS: One view. TECHNIQUE: Supine radiographic image of the abdomen acquired. LIMITATIONS: Morbid obesity FINDINGS: BOWEL GAS PATTERN: Normal bowel gas pattern. No dilated loops. CALCIFICATIONS: No suspicious calcifications. SOFT TISSUES: No gross mass or suggestion of organomegaly. HARDWARE: IUD in the midline pelvis BONES: No acute fracture. No worrisome bone lesions. OTHER: No other significant finding. IMPRESSION: NO RADIOGRAPHIC EVIDENCE FOR ACUTE ABDOMINAL DISEASE. TECHNICAL DOCUMENTATION: JOB ID: [id number] 2010 [employer]- All Rights Reserved Reading location - IP/workstation name: [email or web address]
== END ==
LOC: OD 12:33
PROVIDERS: ATTEND Physician Assistant
DX: R10.84 Generalized abdominal pain (principal)
CPT/HCPCS: 74018

== ENCOUNTER → 2019-12-27 | Outpatient (CLI) | payer BC ==
--- NOTE | 2019-12-27 11:53 | WOMENS IMAGING REPORT ---
EXAM DESCRIPTION: U/S ABDOMEN LIMITED IMAGES COMPLETED DATE/TIME: 12/27/2019 11:18 am REASON FOR STUDY: E66.01 MORBID (SEVERE) OBESITY DUE TO EXCESS CALORIES K21.9 GASTRO-ESOPHAGE E66.01 MORBID (SEVERE) OBESITY DUE TO EXCESS CALORIES K21.9 GASTRO-ESOPHAGEAL REFLUX DISEASE WITHOUT ESOP HAGITIS COMPARISON: None. TECHNIQUE: Dynamic and static grayscale images acquired of the abdomen and recorded on PACS. Additio nal selected color Doppler and spectral images recorded. LIMITATIONS: Body habitus. Limited visualization. Poor acoustical window FINDINGS: PANCREAS: No masses. Visualized pancreatic duct normal caliber. LIVER: Normal size Mild fatty infiltration. No focal masses. LIVER VASCULATURE: Normal directional flow of the main portal vein and hepatic veins. GALLBLADDER: No stones. Normal wall thickness. No pericholecystic fluid. ULTRASOUND-DETECTED BEACH'S SIGN: Negative. INTRAHEPATIC DUCTS AND COMMON DUCT: CBD and intrahepatic ducts normal caliber. No filling defects. INFERIOR VENA CAVA: Normal flow. AORTA: No aneurysm. RIGHT KIDNEY: Normal size. Normal echogenicity. No solid or suspicious masses. No hydronephros is. No calcifications. PERITONEAL AND RIGHT PLEURAL SPACE: No ascites or effusions. OTHER: No other significant findings. IMPRESSION: FATTY LIVER. OTHERWISE NORMAL RUQ US VISUALIZED TECHNICAL DOCUMENTATION: JOB ID: [id number] 2010 [employer]- All Rights Reserved Reading location - IP/workstation name: [email or web address]
== END ==
LOC: WI 10:38
PROVIDERS: ATTEND Surgery
DX: K21.9 Gastro-esophageal reflux disease without esophagitis (principal); E66.01 Morbid (severe) obesity due to excess calories; K76.0 Fatty (change of) liver, not elsewhere classified
CPT/HCPCS: 76705